=== PATIENT | female | born 1960 | race Caucasian/White ===

== ENCOUNTER 2017-07-24 14:26 | Inpatient (IN) | payer MEDICAID ==
[2017-07-24 14:26] VITALS: BMI 36.9
[2017-07-24] MEDS ORDERED: Sodium Chloride 0.9% 1,000 ML IV ONE (14:49)
[2017-07-24] MEDS: Albuterol-Ipratrop 3 mg / 0.5 (3 ml) UD IH SCH ×2 (15:30→15:40)
[2017-07-24 15:40] LABS: BASO # 0.1 K/uL (0.0-0.2); BASO % 0.4 % (0.0-2.0); EOS # 0.2 K/uL (0.0-0.7); EOS % 1.2 % (0.0-4.0); HEMATOCRIT 36.9 % (34.0-47.0); LYMPH # 1.1 K/uL (1.0-4.3); LYMPH % 7.7 % (20.0-40.0); MEAN CORPUSCULAR HEMOGLOBIN 23.8 pg (27.0-31.0); MEAN CORPUSCULAR HGB CONC 32.3 g/dL (33.0-37.0); MEAN PLATELET VOLUME 8.2 fL (7.2-11.7); MONO # 1.5 K/uL (0.0-0.8); MONO % 9.9 % (0.0-10.0); PLATELET COUNT 398 K/uL (130-400); RED CELL DISTRIBUTION WIDTH 18.8 % (11.5-14.5); WHITE BLOOD COUNT 14.7 K/uL (4.8-10.8)
[2017-07-24 15:41] LABS: MEAN CELL VOLUME 73.6 fL (81.0-99.0)
[2017-07-24] MEDS ORDERED: Albuterol-Ipratrop 3 mg / 0.5 (3 ml) UD ONE (15:50)
--- NOTE | 2017-07-24 15:55 | C.PDOC ---
History Of Present Illness <Samara Berry Charley - Last Filed: 07/24/17 18:38> <Terri Burks - Last Filed: 07/24/17 20:19> 56 y/o female, with PMHx of asthma, presents to ED for evaluation of cough, phlegm, and shortness of breath for the last 2 days. As per son, pt had fever, and diarrhea yesterday. Pt reports using inhaler at home without improvement. Otherwise, denies chest pain, abdominal pain, nausea, vomiting, or lower extremity pain/swelling. (Samara Berry) History Per: Patient History/Exam Limitations: no limitations Onset/Duration Of Symptoms: Days (2) Current Symptoms Are (Timing): Still Present Exacerbating Factor(s): Exertion, Coughing Current Respiratory Medications: See Home Med List Severity: None Pain Scale Rating Of: 0 Associated Symptoms: Fever. denies: Sweating, Chest Pain, Bloody Cough, Heart Racing, Leg/Calf Pain, Ankle/Leg Swelling, Dizziness, Light-headedness, Anxiety , Tingling In Hands Or Face, Musle Spasms In Hands Or Feet Recent travel outside of the [place]: No Additional History Per: Patient <Samara Berry - Last Filed: 07/24/17 18:38> <Terri Burks - Last Filed: 07/24/17 20:19> Time Seen by Provider: 07/24/17 14:32 Chief Complaint (Nursing): Shortness Of Breath Past Medical History Reviewed: Historical Data, Nursing Documentation, Vital Signs - Medical History PMH: Asthma, Diabetes, HTN Surgical History: Cholecystectomy Family History: States: Unknown Family Hx - Social History Hx Tobacco Use: No Hx Alcohol Use: No Hx Substance Use: No - Immunization History Hx Tetanus Toxoid Vaccination: No Hx Influenza Vaccination: No Hx Pneumococcal Vaccination: No <KristiSamara A - Last Filed: 07/24/17 18:38> Vital Signs: Last Vital Signs Temp 98.6 F 07/24/17 14:33 Pulse 95 H 07/24/17 14:33 Resp 20 07/24/17 15:15 BP 129/86 07/24/17 14:33 Pulse Ox 96 07/24/17 18:41 - [facility] Procedures ESOPHAGOGASTRODUODENOSCOPY [EGD] W/CLOSED BIOPSY (03/13/13) Review Of Systems Except As Marked, All Systems Reviewed And Found Negative. Constitutional: Positive for: Fever Cardiovascular: Negative for: Chest Pain, Palpitations, Light Headedness Respiratory: Positive for: Cough, Shortness of Breath, Sputum. Negative for: Hemoptysis Gastrointestinal: Positive for: Diarrhea. Negative for: Nausea, Vomiting, Abdominal Pain, Melena, Hematochezia Genitourinary: Negative for: Dysuria, Frequency, Hematuria Skin: Negative for: Rash, Bruising Neurological: Negative for: Headache, Dizziness <Samara Berry Charley - Last Filed: 07/24/17 18:38> Physical Exam - Physical Exam Appears: Non-toxic, No Acute Distress Skin: Normal Color, Warm, Dry Head: Atraumatic, Normacephalic Eye(s): bilateral: EOMI, Other (blind) Nose: Normal Oral Mucosa: Moist Neck: Normal ROM, Supple Chest: Symmetrical Cardiovascular: Rhythm Regular, No Murmur Respiratory: Normal Breath Sounds, No Rales, No Rhonchi, No Wheezing Gastrointestinal/Abdominal: Soft, No Tenderness Back: No CVA Tenderness Extremity: Normal ROM, No Pedal Edema Neurological/Psych: Oriented x3, Normal Speech, Normal Cognition <Samara Berry Charley - Last Filed: 07/24/17 18:38> ED Course And Treatment - Laboratory Results Result Diagrams: 07/24/17 15:31 07/24/17 15:31 Lab Interpretation: No Acute Changes ECG: Interpreted By Me ECG Rhythm: Sinus Rhythm ECG Interpretation: No Acute Changes Rate From EC O2 Sat by Pulse Oximetry: 96 Pulse Ox Interpretation: Normal - Other Rad No standard instances X-Ray: Viewed By Me, Read By Radiologist Interpretation: FINDINGS: LUNGS: The lungs are well inflated. The right lung is clear. PLEURA: There is a small left pleural effusion. No right pleural effusion. No pneumothorax. CARDIOVASCULAR: Normal. OSSEOUS STRUCTURES: Within normal limits for the patient's age. There is lobular calcification lateral to the left humeral head which may represent calcific tendinitis. VISUALIZED UPPER ABDOMEN: Normal. OTHER FINDINGS: None. IMPRESSION: Small left pleural effusion. Underlying atelectasis/ pneumonia cannot be excluded. Follow-up is advised. Progress Note: Blood work, UA, CXR, EKG, angio chest CT ordered and reviewed. Patient was given IV fluids, and nebulizer treatment. Treated with Rocephin and zithromax IV Reassessment Condition: Improved <Samara Berry - Last Filed: 07/24/17 18:38> - Laboratory Results Result Diagrams: 07/24/17 15:31 07/24/17 15:31 Lab Interpretation: Abnormal (WBC 14.7 with left shift, d-dimer) - CT Scan/US CT angio chest Other Rad Studies (CT/US): Read By Radiologist, Radiology Report Reviewed CT/US Interpretation: Accession No. : [id number]. Patient Name / ID : KEV FOWLER / [id number]. Exam Date : 07/24/2017 18:44:11 ( Approved ) . Study Comment : Sex / Age : F / 56Y. Creator : Teo Huston MD. Dictator : Teo Huston MD. Continuous Drier Operator : Air Brakes Inspector : Teo Huston MD. Approver2 : Report Date : 07/24/2017 19:02:21. My Comment : . PROCEDURE: CT Chest with contrast (Pulmonary Angiogram). HISTORY: dyspnea. COMPARISON: None available. TECHNIQUE: Axial computed tomography images were obtained of the chest in the pulmonary arterial phase of enhancement. Coronal and sagittal reformatted images were created and reviewed. Intravenous contrast dose: 100 cc Visipaque 320. Mean Hounsfield unit values in the main pulmonary artery: 265.48. Radiation dose: Total exam DLP = 570.78 mGy-cm. This CT exam was performed using one or more of the following dose reduction techniques: Automated exposure control, adjustment of the mA and/or kV according to patient size, and/or use of iterative reconstruction technique. FINDINGS: PULMONARY ARTERIES: Unremarkable. No pulmonary embolism. AORTA: Mildly aneurysmal ascending aorta orthogonal measurements 3.9 x 4.2 cm. Unremarkable aortic arch and descending thoracic and upper abdominal aorta. LUNGS: Compressive atelectasis primarily affecting the left lower lobe. No suspicious pulmonary nodules, masses, infiltrates identified. PLEURAL SPACES: Unremarkable. No effusionPartially loculated, large left pleural effusion. All or pneuomothorax. HEART: Unremarkable. No cardiomegaly. No significant pericardial effusion. LYMPH NODES: No lymphadenopathy. BONES, CHEST WALL: Unremarkable. No fracture or destructive lesion. OTHER FINDINGS: Unremarkable. IMPRESSION: Unremarkable CT pulmonary angiogram. No pulmonary embolus. Large left pleural effusion partially loculated. Compressive atelectasis primarily affecting the left lower lobe. Reevaluation Time: 20:16 - Physician Consult Information Time Consulting Physician Contacted: 20:16 Physician Contacted: Gene Olivares Outcome Of Conversation: Patient to be admitted for evaluation and treatment of left pleural effusion. <Terri Burks - Last Filed: 07/24/17 20:19> Disposition - Disposition Disposition Time: 19:00 - POA Present On Arrival: None <Samara Berry - Last Filed: 07/24/17 18:38> - Disposition Disposition Time: 20:19 - POA Present On Arrival: None <Terri Burks - Last Filed: 07/24/17 20:19> - Disposition Disposition: HOSPITALIZED Condition: STABLE Forms: [facility] (Lao) - Clinical Impression Clinical Impression: Dyspnea, Pneumonia, Pleural effusion, left - PA / ELECTRONIC DESIGN ENGINEER / Resident Statement MD/DO has reviewed & agrees with the documentation as recorded. - Scribe Statement The provider has reviewed the documentation as recorded by the Scribe <Samara Berry - Last Filed: 07/24/17 18:38> <Terri Burks - Last Filed: 07/24/17 20:19> - Scribe Statement Jarad Birch All medical record entries made by the Scribe were at my direction and personally dictated by me. I have reviewed the chart and agree that the record accurately reflects my personal performance of the history, physical exam, medical decision making, and the department course for this patient. I have also personally directed, reviewed, and agree with the discharge instructions and disposition. (Samara Berry) Physician Patient Turnover Patient Signed Over To: Terri Burks Handoff Comments: CTA <Samara Berry - Last Filed: 07/24/17 18:38>
[2017-07-24 16:07] LABS: CHLORIDE 94 mmol/L (98-107); NEUTROPHIL 82 % (50-75); POTASSIUM 3.5 mmol/L (3.6-5.2); SODIUM 132 mmol/L (132-148); TOTAL CELLS COUNTED 100
[2017-07-24 16:08] LABS: GIANT PLATELETS PRESENT; LARGE PLATELETS PRESENT
[2017-07-24 16:09] LABS: AST/SGOT 18 U/L (14-36); BILIRUBIN,TOTAL 0.5 mg/dL (0.2-1.3); CARBON DIOXIDE 21 mmol/L (22-30); GFR AFRICAN-AMERICAN > 60
[2017-07-24 16:10] LABS: ALB/GLOB RATIO 1.1 (1.0-2.1); ALKALINE PHOSPHATASE 86 U/L (38-126); ALT/SGPT 25 U/L (9-52); BLOOD UREA NITROGEN 10 mg/dL (7-17); CALCIUM 9.1 mg/dl (8.6-10.4); GLUCOSE,RANDOM 204 mg/dL (65-105); TOTAL PROTEIN 7.8 g/dL (6.3-8.3)
--- NOTE | 2017-07-24 16:40 | RAD ---
HISTORY: Shortness of breath COMPARISON: 08/19/2011. TECHNIQUE: Chest PA and lateral FINDINGS: LUNGS: The lungs are well inflated. The right lung is clear. PLEURA: There is a small left pleural effusion. No right pleural effusion. No pneumothorax. CARDIOVASCULAR: Normal. OSSEOUS STRUCTURES: Within normal limits for the patient's age. There is lobular calcification lateral to the left humeral head which may represent calcific tendinitis. VISUALIZED UPPER ABDOMEN: Normal. OTHER FINDINGS: None. IMPRESSION: Small left pleural effusion. Underlying atelectasis/ pneumonia cannot be excluded. Follow-up is advised.
[2017-07-24 17:11] LABS: RBC URINE 1 /hpf (0-3); URINE BACTERIA RARE (<OCC); URINE BILIRUBIN NEGATIVE (NEGATIVE); URINE BLOOD NEGATIVE (NEGATIVE); URINE COLOR Yellow (YELLOW); URINE GLUCOSE (UA) 1+ mg/dL (Normal); URINE KETONE NEGATIVE (NEGATIVE); URINE LEUKOCYTE ESTERASE NEG Leu/uL (Negative); URINE PROTEIN NEGATIVE (NEGATIVE); URINE UROBILINOGEN NORMAL mg/dL (0.2-1.0); WBC URINE 2 /hpf (0-5)
[2017-07-24] MEDS ORDERED: cefTRIAXone IV 1 gm in Dextros 50 ML IV ONE (17:54)
[2017-07-24] MEDS ORDERED: Iodixanol 320 MG/ML 100 ML BOTTLE IV ONE (17:58)
[2017-07-24] MEDS ORDERED: Azithromycin 500mg/250ML NS 500 MG/250 ML BAG IV ONE (18:00)
[2017-07-24] MEDS ORDERED: Azithromycin 500mg/250ML NS 500 MG/250 ML BAG IVPB ONE ×2 (18:19→18:58)
[2017-07-24] MEDS ORDERED: cefTRIAXone IV 1 gm in Dextros 50 ML IVPB ONE (18:53)
--- NOTE | 2017-07-24 19:03 | CT ---
PROCEDURE: CT Chest with contrast (Pulmonary Angiogram) HISTORY: dyspnea COMPARISON: None available. TECHNIQUE: Axial computed tomography images were obtained of the chest in the pulmonary arterial phase of enhancement. Coronal and sagittal reformatted images were created and reviewed. Intravenous contrast dose: 100 cc Visipaque 320 Mean Hounsfield unit values in the main pulmonary artery: 265.48 Radiation dose: Total exam DLP = 570.78 mGy-cm. This CT exam was performed using one or more of the following dose reduction techniques: Automated exposure control, adjustment of the mA and/or kV according to patient size, and/or use of iterative reconstruction technique. FINDINGS: PULMONARY ARTERIES: Unremarkable. No pulmonary embolism. AORTA: Mildly aneurysmal ascending aorta orthogonal measurements 3.9 x 4.2 cm. Unremarkable aortic arch and descending thoracic and upper abdominal aorta. LUNGS: Compressive atelectasis primarily affecting the left lower lobe. No suspicious pulmonary nodules, masses, infiltrates identified. PLEURAL SPACES: Unremarkable. No effusionPartially loculated, large left pleural effusion. All or pneuomothorax. HEART: Unremarkable. No cardiomegaly. No significant pericardial effusion. LYMPH NODES: No lymphadenopathy. BONES, CHEST WALL: Unremarkable. No fracture or destructive lesion OTHER FINDINGS: Unremarkable. IMPRESSION: Unremarkable CT pulmonary angiogram. No pulmonary embolus. Large left pleural effusion partially loculated. Compressive atelectasis primarily affecting the left lower lobe.
[2017-07-25] MEDS ORDERED: Albuterol-Ipratrop 3 mg / 0.5 (3 ml) UD INH PRN (00:07)
[2017-07-25 01:47] LABS: BASO # 0.1 K/uL (0.0-0.2); BASO % 0.9 % (0.0-2.0); EOS # 0.2 K/uL (0.0-0.7); EOS % 1.7 % (0.0-4.0); HEMATOCRIT 34.3 % (34.0-47.0); LYMPH # 1.3 K/uL (1.0-4.3); LYMPH % 11.8 % (20.0-40.0); MEAN CELL VOLUME 73.4 fL (81.0-99.0); MEAN CORPUSCULAR HEMOGLOBIN 23.1 pg (27.0-31.0); MEAN CORPUSCULAR HGB CONC 31.4 g/dL (33.0-37.0); MEAN PLATELET VOLUME 8.3 fL (7.2-11.7); MONO # 1.2 K/uL (0.0-0.8); MONO % 10.6 % (0.0-10.0); RED CELL DISTRIBUTION WIDTH 19.2 % (11.5-14.5); WHITE BLOOD COUNT 11.4 K/uL (4.8-10.8)
[2017-07-25 01:59] LABS: CHLORIDE 99 mmol/L (98-107); POTASSIUM 3.2 mmol/L (3.6-5.2); SODIUM 136 mmol/L (132-148)
[2017-07-25 02:02] LABS: ALKALINE PHOSPHATASE 76 U/L (38-126); ALT/SGPT 17 U/L (9-52); AST/SGOT 15 U/L (14-36); BILIRUBIN,TOTAL 0.5 mg/dL (0.2-1.3); BLOOD UREA NITROGEN 7 mg/dL (7-17); CALCIUM 9.1 mg/dl (8.6-10.4); CARBON DIOXIDE 23 mmol/L (22-30); GFR AFRICAN-AMERICAN > 60; GLUCOSE,RANDOM 184 mg/dL (65-105); TOTAL PROTEIN 7.1 g/dL (6.3-8.3)
--- NOTE | 2017-07-25 03:12 | CP.PCM.HP ---
<Ari Olson - Last Filed: 07/25/17 04:20> History of Present Illness - History of Present Illness History of Present Illness: 56 yo F with a PMHx of asthma, DM, HTN, CVA, and total bilateral vision loss, presents to the ED for worsening shortness of breath that began 4 days ago. Alleviating factors include laying flat and exacerbating factors include sitting up or standing. Associated symptoms include non-productive cough, wheezing, fatigue, subjective fever, headache and loss of appetite. The cough has disrupted her sleep. She also endorses mid-sternal/right sided chest pain rated 7/10, epigastric pain rated 7/10, and 5 episodes of non-bloody diarrhea which all began yesterday. She denies sore throat, recent travel, sick contacts , dysuria, chills, weight changes. She says her shortness of breath feels like asthma. She normally uses her inhaler 1-2x a day however the inhaler hasn't resolved her dsypnea this time. 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", HTN, left sided pyelonephritis 2015, hiatal hernia PSHx: EGD w/ biopsy 2012, cholecystectomy Allergies: NKA Home Medications: Carvedilol 12.5mg po bid, Fluticasone propionate 50mcg inh daily, Advair Diskus 1 puff IH q12, Ferralet 1 tab po daily, loratadine 10mg po qd, metformin 1000mg po bid, omeprazole 20mg po daily, onglyza 5mg po daily, valsartan 160-25mg qd, montelukast 10mg qd SocialHx: hx of 1/2 ppd for 20 years; denies alcohol and drugs; lives alone in apartment; unemployed; FamHx: Mom: Asthma, DM; Uncle: total b/l vision loss; 4 kids delivered, all premature, 2 shortly after childbirth, 1 child at 14 yrs and also with b/l vision loss, cause of unknown, "water in his head", 1 son alive with no medical problems Present on Admission - Present on Admission Any Indicators Present on Admission: No History of DVT/PE: No History of Uncontrolled Diabetes: No Urinary Catheter: No Decubitus Ulcer Present: No Review of Systems - Constitutional Constitutional: Fever, Headache. absent: Chills, Night Sweats, Weight Loss - EENT Eyes: Loss of Vision Ears: absent: Ear Pain Nose/Mouth/Throat: absent: Nasal Discharge - Cardiovascular Cardiovascular: Chest Pain. absent: Diaphoresis, Pain Radiating to Arm/Neck/Jaw , Leg Edema, Palpitations, Rapid Heart Rate - Respiratory Respiratory: Cough, Wheezing, Pain on Inspiration. absent: Hemoptysis, Dyspnea on Exertion - Gastrointestinal Gastrointestinal: Abdominal Pain, Diarrhea. absent: Vomiting - Genitourinary Genitourinary: absent: Dysuria, Flank Pain, Urinary Frequency - Musculoskeletal Musculoskeletal: absent: Back Pain, Muscle Weakness - Integumentary Integumentary: absent: Lesions - Neurological Neurological: absent: Confusion, Convulsions, Dizziness Past Patient History - Past Social History Smoking Status: Never Smoked - CARDIAC Hx Hypertension: Yes - PULMONARY Hx Asthma: Yes - NEUROLOGICAL Hx Neurological Disorder: Yes HX Cerebrovascular Accident: Yes - ENDOCRINE/METABOLIC Hx Diabetes Mellitus Type 2: Yes - PSYCHIATRIC Hx Substance Use: No - SURGICAL HISTORY Hx Cholecystectomy: Yes - ANESTHESIA Hx Anesthesia: Yes Hx Anesthesia Reactions: No Meds Allergies/Adverse Reactions: Allergies Allergy/AdvReac Type Severity Reaction Status Date / Time No Known Allergies Allergy Verified 07/24/17 14:39 Physical Exam - Constitutional Appears: Well, Non-toxic, No Acute Distress - Head Exam Head Exam: ATRAUMATIC, NORMAL INSPECTION - Eye Exam Eye Exam: absent: EOMI Pupil Exam: absent: PERRL Additional comments: total bilateral vision loss - ENT Exam ENT Exam: Mucous Membranes Moist, Normal Exam - Neck Exam Neck exam: Negative for: Lymphadenopathy, Tenderness - Respiratory Exam Respiratory Exam: Rales, Wheezes. absent: Clear to Auscultation Bilateral Additional comments: left sided rales; wheezing diffusely b/l - Cardiovascular Exam Cardiovascular Exam: REGULAR RHYTHM, +S1, +S2. absent: Irregular Rhythm, Systolic Murmur - GI/Abdominal Exam GI & Abdominal Exam: Normal Bowel Sounds, Soft. absent: Tenderness - Rectal Exam Rectal Exam: Deferred - Extremities Exam Extremities exam: Positive for: normal capillary refill, normal inspection. Negative for: calf tenderness, pedal edema, tenderness - Back Exam Back exam: NORMAL INSPECTION. absent: CVA tenderness (L), CVA tenderness (R), tenderness - Neurological Exam Neurological exam: Alert, Oriented x3 - Psychiatric Exam Psychiatric exam: Normal Affect, Normal Mood - Skin Skin Exam: Dry, Intact, Normal Color, Warm Results - Vital Signs Recent Vital Signs: Last Vital Signs Temp 98.4 F 07/25/17 00:15 Pulse 83 07/25/17 00:15 Resp 20 07/25/17 00:15 BP 135/86 07/25/17 00:15 Pulse Ox 96 07/25/17 00:15 - Labs Result Diagrams: 07/25/17 01:38 07/25/17 01:38 Labs: Laboratory Results - last 24 hr 07/24/17 07/24/17 07/24/17 15:31 15:31 15:31 WBC 14.7 H RBC 5.02 Hgb 12.0 Hct 36.9 MCV 73.6 L D MCH 23.8 L MCHC 32.3 L RDW 18.8 H Plt Count 398 MPV 8.2 Neut % (Auto) 80.8 H Lymph % (Auto) 7.7 L [place] % (Auto) 9.9 Eos % (Auto) 1.2 Baso % (Auto) 0.4 Neut # 11.9 H Lymph # 1.1 [place] # 1.5 H Eos # 0.2 Baso # 0.1 Neutrophils % (Manual) 82 H Band Neutrophils % 1 Lymphocytes % (Manual) 7 L Monocytes % (Manual) 10 Platelet Estimate Normal Large Platelets Present Giant Platelets Present Poikilocytosis (manual Slight Anisocytosis (manual) Slight Ovalocytes Slight D-Dimer, Quantitative 905 H Sodium 132 Potassium 3.5 L Chloride 94 L Carbon Dioxide 21 L Anion Gap 21 H BUN 10 Creatinine 0.7 Est GFR ( Amer) > 60 Est GFR (Non-Af Amer) > 60 Random Glucose 204 H Hemoglobin A1c Lactic Acid Calcium 9.1 Total Bilirubin 0.5 AST 18 ALT 25 Alkaline Phosphatase 86 Troponin I < 0.0120 NT-Pro-B Natriuret Pep 260 Total Protein 7.8 Albumin 4.0 Globulin 3.8 Albumin/Globulin Ratio 1.1 Lipase 51 Urine Color Urine Clarity Urine pH Ur Specific [place] Urine Protein Urine Glucose (UA) Urine Ketones Urine Blood Urine Nitrate Urine Bilirubin Urine Urobilinogen Ur Leukocyte Esterase Urine WBC (Auto) Urine RBC (Auto) Ur Squamous Epith Cells Urine Bacteria 07/24/17 07/25/17 07/25/17 16:21 01:38 01:38 WBC 11.4 H RBC 4.68 Hgb 10.8 L Hct 34.3 MCV 73.4 L MCH 23.1 L MCHC 31.4 L RDW 19.2 H Plt Count 368 MPV 8.3 Neut % (Auto) 75.0 Lymph % (Auto) 11.8 L [place] % (Auto) 10.6 H Eos % (Auto) 1.7 Baso % (Auto) 0.9 Neut # 8.6 H Lymph # 1.3 [place] # 1.2 H Eos # 0.2 Baso # 0.1 Neutrophils % (Manual) Band Neutrophils % Lymphocytes % (Manual) Monocytes % (Manual) Platelet Estimate Large Platelets Giant Platelets Poikilocytosis (manual Anisocytosis (manual) Ovalocytes D-Dimer, Quantitative Sodium 136 Potassium 3.2 L Chloride 99 Carbon Dioxide 23 Anion Gap 17 BUN 7 Creatinine 0.6 L Est GFR ( Amer) > 60 Est GFR (Non-Af Amer) > 60 Random Glucose 184 H Hemoglobin A1c Lactic Acid Calcium 9.1 Total Bilirubin 0.5 AST 15 ALT 17 Alkaline Phosphatase 76 Troponin I NT-Pro-B Natriuret Pep Total Protein 7.1 Albumin 3.6 Globulin 3.6 Albumin/Globulin Ratio 1.0 Lipase Urine Color Yellow Urine Clarity Clear Urine pH 6.0 Ur Specific [place] 1.009 Urine Protein Negative Urine Glucose (UA) 1+ Urine Ketones Negative Urine Blood Negative Urine Nitrate Negative Urine Bilirubin Negative Urine Urobilinogen Normal Ur Leukocyte Esterase Neg Urine WBC (Auto) 2 Urine RBC (Auto) 1 Ur Squamous Epith Cells 3 Urine Bacteria Rare 07/25/17 07/25/17 01:38 01:43 WBC RBC Hgb Hct MCV MCH MCHC RDW Plt Count MPV Neut % (Auto) Lymph % (Auto) [place] % (Auto) Eos % (Auto) Baso % (Auto) Neut # Lymph # [place] # Eos # Baso # Neutrophils % (Manual) Band Neutrophils % Lymphocytes % (Manual) Monocytes % (Manual) Platelet Estimate Large Platelets Giant Platelets Poikilocytosis (manual Anisocytosis (manual) Ovalocytes D-Dimer, Quantitative Sodium Potassium Chloride Carbon Dioxide Anion Gap BUN Creatinine Est GFR ( Amer) Est GFR (Non-Af Amer) Random Glucose Hemoglobin A1c 6.9 H Lactic Acid 1.9 Calcium Total Bilirubin AST ALT Alkaline Phosphatase Troponin I NT-Pro-B Natriuret Pep Total Protein Albumin Globulin Albumin/Globulin Ratio Lipase Urine Color Urine Clarity Urine pH Ur Specific [place] Urine Protein Urine Glucose (UA) Urine Ketones Urine Blood Urine Nitrate Urine Bilirubin Urine Urobilinogen Ur Leukocyte Esterase Urine WBC (Auto) Urine RBC (Auto) Ur Squamous Epith Cells Urine Bacteria Assessment & Plan (1) Pleural effusion, left Assessment and Plan: Possibly 2/2 to pneumonia w/ atypical presentation; elevated WBC; sob, dry cough , extra-pulmonary symptoms: mid-sternal/rt sided chest pain and abd pain worse w / inspiration, subjective fever, headache, nausea, diarrhea CTA Chest: large left pleural effusion partially loculated, no evidence for PE CXR: small left pleural effusion Troponin negative ProBNP 260 F/U blood culture, procalcitonin, lactate, mycoplasma Igg, s.pneumoniae Ag, sputum culture, legionella Ag urine, cbc w/ diff ceftriaxone 1gm ivpb daily azithromycin 500mg ivpb daily Status: Acute (2) Asthma Assessment and Plan: Moderate persistent asthma w/ inhaler use 1-2x a day duoneb q6 prn con't home med fluticasone propionate 1 spr ns daily con't home med fluticasone/salmeterol 1 putt IH q12 con't home med montelukast 10mg po hs con't home med loratadine 10mg po daily Status: Acute (3) Diabetes mellitus Assessment and Plan: Hx of DM2 HgA1C 6.9 Regular insulin sliding scale - low dose protocol holding home med metformin 1000mg po bid diabetic diet Status: Acute (4) HTN (hypertension) Assessment and Plan: Hx of HTN; BP well controlled con't home med carvedilol 12.5mg po bid con't home med valsartan 160-25mg qd, however our pharmacy does not carry thus will replace with losartan 100mg and hydrochlorothiazide 25mg Status: Acute (5) Prophylactic measure Assessment and Plan: GI: con't home med pantoprazole 20mg po daily DVT: heparin 5000u sc q12 Diet: diabetic diet Status: Acute <Gene Olivares - Last Filed: 07/25/17 06:39> Results - Vital Signs Recent Vital Signs: Last Vital Signs Temp 98.4 F 07/25/17 00:15 Pulse 69 07/25/17 01:00 Resp 20 07/25/17 00:49 BP 135/86 07/25/17 00:15 Pulse Ox 96 07/25/17 00:15 - Labs Result Diagrams: 07/25/17 01:38 07/25/17 01:38 Labs: Laboratory Results - last 24 hr 07/24/17 07/24/17 07/24/17 15:31 15:31 15:31 WBC 14.7 H RBC 5.02 Hgb 12.0 Hct 36.9 MCV 73.6 L D MCH 23.8 L MCHC 32.3 L RDW 18.8 H Plt Count 398 MPV 8.2 Neut % (Auto) 80.8 H Lymph % (Auto) 7.7 L [place] % (Auto) 9.9 Eos % (Auto) 1.2 Baso % (Auto) 0.4 Neut # 11.9 H Lymph # 1.1 [place] # 1.5 H Eos # 0.2 Baso # 0.1 Neutrophils % (Manual) 82 H Band Neutrophils % 1 Lymphocytes % (Manual) 7 L Monocytes % (Manual) 10 Platelet Estimate Normal Large Platelets Present Giant Platelets Present Poikilocytosis (manual Slight Anisocytosis (manual) Slight Ovalocytes Slight D-Dimer, Quantitative 905 H Sodium 132 Potassium 3.5 L Chloride 94 L Carbon Dioxide 21 L Anion Gap 21 H BUN 10 Creatinine 0.7 Est GFR ( Amer) > 60 Est GFR (Non-Af Amer) > 60 Random Glucose 204 H Hemoglobin A1c Lactic Acid Calcium 9.1 Total Bilirubin 0.5 AST 18 ALT 25 Alkaline Phosphatase 86 Troponin I < 0.0120 NT-Pro-B Natriuret Pep 260 Total Protein 7.8 Albumin 4.0 Globulin 3.8 Albumin/Globulin Ratio 1.1 Lipase 51 Urine Color Urine Clarity Urine pH Ur Specific [place] Urine Protein Urine Glucose (UA) Urine Ketones Urine Blood Urine Nitrate Urine Bilirubin Urine Urobilinogen Ur Leukocyte Esterase Urine WBC (Auto) Urine RBC (Auto) Ur Squamous Epith Cells Urine Bacteria 07/24/17 07/25/17 07/25/17 16:21 01:38 01:38 WBC 11.4 H RBC 4.68 Hgb 10.8 L Hct 34.3 MCV 73.4 L MCH 23.1 L MCHC 31.4 L RDW 19.2 H Plt Count 368 MPV 8.3 Neut % (Auto) 75.0 Lymph % (Auto) 11.8 L [place] % (Auto) 10.6 H Eos % (Auto) 1.7 Baso % (Auto) 0.9 Neut # 8.6 H Lymph # 1.3 [place] # 1.2 H Eos # 0.2 Baso # 0.1 Neutrophils % (Manual) Band Neutrophils % Lymphocytes % (Manual) Monocytes % (Manual) Platelet Estimate Large Platelets Giant Platelets Poikilocytosis (manual Anisocytosis (manual) Ovalocytes D-Dimer, Quantitative Sodium 136 Potassium 3.2 L Chloride 99 Carbon Dioxide 23 Anion Gap 17 BUN 7 Creatinine 0.6 L Est GFR ( Amer) > 60 Est GFR (Non-Af Amer) > 60 Random Glucose 184 H Hemoglobin A1c Lactic Acid Calcium 9.1 Total Bilirubin 0.5 AST 15 ALT 17 Alkaline Phosphatase 76 Troponin I NT-Pro-B Natriuret Pep Total Protein 7.1 Albumin 3.6 Globulin 3.6 Albumin/Globulin Ratio 1.0 Lipase Urine Color Yellow Urine Clarity Clear Urine pH 6.0 Ur Specific [place] 1.009 Urine Protein Negative Urine Glucose (UA) 1+ Urine Ketones Negative Urine Blood Negative Urine Nitrate Negative Urine Bilirubin Negative Urine Urobilinogen Normal Ur Leukocyte Esterase Neg Urine WBC (Auto) 2 Urine RBC (Auto) 1 Ur Squamous Epith Cells 3 Urine Bacteria Rare 07/25/17 07/25/17 01:38 01:43 WBC RBC Hgb Hct MCV MCH MCHC RDW Plt Count MPV Neut % (Auto) Lymph % (Auto) [place] % (Auto) Eos % (Auto) Baso % (Auto) Neut # Lymph # [place] # Eos # Baso # Neutrophils % (Manual) Band Neutrophils % Lymphocytes % (Manual) Monocytes % (Manual) Platelet Estimate Large Platelets Giant Platelets Poikilocytosis (manual Anisocytosis (manual) Ovalocytes D-Dimer, Quantitative Sodium Potassium Chloride Carbon Dioxide Anion Gap BUN Creatinine Est GFR ( Amer) Est GFR (Non-Af Amer) Random Glucose Hemoglobin A1c 6.9 H Lactic Acid 1.9 Calcium Total Bilirubin AST ALT Alkaline Phosphatase Troponin I NT-Pro-B Natriuret Pep Total Protein Albumin Globulin Albumin/Globulin Ratio Lipase Urine Color Urine Clarity Urine pH Ur Specific [place] Urine Protein Urine Glucose (UA) Urine Ketones Urine Blood Urine Nitrate Urine Bilirubin Urine Urobilinogen Ur Leukocyte Esterase Urine WBC (Auto) Urine RBC (Auto) Ur Squamous Epith Cells Urine Bacteria Assessment & Plan - Date & Time Date: 07/25/17 (I have seen and examined the patient. I agree with the findings and plan of care as documented by Dr. Olson. Patient with left pleural effusion. CT chest done. Rocephin and Azithromycin for now. Check sputum and blood cultures. Also with history of diabetes and asthma. Continue home meds. Accuchecks and NISS. Monitor for acute changes.) Time: 06:37 Attending/Attestation - Attestation I have personally seen and examined this patient.: Yes I have fully participated in the care of the patient.: Yes I have reviewed all pertinent clinical information: Yes
[2017-07-25] MEDS: (Novolin R) Insulin Human Regular 100 units/ml vial SC SCH ×4 (08:25→22:03)
[2017-07-25] MEDS ORDERED: Pneumococcal 23-Valent Vaccine IM ONE (10:00)
[2017-07-25] MEDS ORDERED: Azithromycin 500 MG in Sodium Chloride 0.9% 250 ML IVPB SCH (10:00)
[2017-07-25] MEDS ORDERED: Fluticasone-Salmeterol 250-50mcg Diskus IH SCH (10:00)
[2017-07-25] MEDS ORDERED: Potassium Chloride 20 mEq ER Tab PO ONE (10:00)
[2017-07-25] MEDS: Saccharomyces Boulardi 250 mg Cap PO SCH ×2 (10:46→17:54)
[2017-07-25] MEDS: Fluticasone Nasal 50 mcg/Spray NS SCH (10:47)
[2017-07-25] MEDS: Pantoprazole 20 mg EC Tab PO SCH (10:48)
--- NOTE | 2017-07-25 11:28 | PCM.SURG1 ---
Surgeon's Initial Post Op Note - Surgeon's Notes Surgeon: Dg James MD Vp Corporate Partnerships: NONE Type of Anesthesia: Local Pre-Operative Diagnosis: Left pleural effusion Operative Findings: US showed a small left effusion Post-Operative Diagnosis: Left pleural effusion Operation Performed: US guided left thoracentesis. Specimen/Specimens Removed: 300 cc of clear yellow fluid Estimated Blood Loss: EBL {In ML}: 0 Blood Products Given: N/A Drains Used: No Drains Post-Op Condition: Fair Date of Surgery/Procedure: 07/25/17 Time of Surgery/Procedure: 11:25
[2017-07-25 12:06] LABS: IRON 19 ug/dL (37-170)
[2017-07-25 12:07] LABS: MAGNESIUM 1.4 mg/dL (1.6-2.3); PHOSPHOROUS 2.6 mg/dL (2.5-4.5)
--- NOTE | 2017-07-25 12:59 | CP.PCM.PN ---
Addendum entered and electronically signed by Caitlin Amor DO 07/25/17 15:55: I spoke with Kal, Nursing diving supervisor of lab histology, who instructed to get a green slip filled out for cytology. The orders were resent for pleural fluid studies (LDH, Total protein, pH, etc) Nursing diving supervisor stated that the labs were cancelled, and was unable to submit them for studies. I reordered the labs "stat." will follow. Original Note: <Caitlin Amor - Last Filed: 07/25/17 15:41> Subjective - Date & Time of Evaluation Date of Evaluation: 07/25/17 Time of Evaluation: 12:59 - Subjective Subjective: Internal Medicine Progress note for Dr. Birch Patient seen and examined at bedside. Patient admits to shortness of breath yesterday, but denies any difficulty breathing today. Patient states she had chest pain, which has resolved. Patient denies numbness, or tingling. Patient states she has an appetite now. Patient denies difficulty with bowel movements, urination. Patient admits to cough and fatigue. Explained at bedside that patient has fluid around lungs that need to be taken out by interventional radiologist today. Patient went for procedure and 300cc fluid was removed. Patient stated she had non-productive Objective - Vital Signs/Intake and Output Vital Signs (last 24 hours): Temp Pulse Resp BP Pulse Ox 97.8 F 70 20 125/76 98 07/25/17 08:00 07/25/17 08:00 07/25/17 08:00 07/25/17 10:46 07/25/17 08:00 - Medications Medications: Current Medications Albuterol/Ipratropium (Duoneb 3 Mg/0.5 Mg (3 Ml) Ud) 3 ml INH RQ6 PRN PRN Reason: Shortness of Breath Last Admin: 07/25/17 08:02 Dose: 3 ml Carvedilol (Coreg) 12.5 mg PO BID [facility] Last Admin: 07/25/17 10:46 Dose: 12.5 mg Famotidine (Pepcid) 20 mg PO DAILY [facility] Last Admin: 07/25/17 10:46 Dose: 20 mg Fluticasone Propionate (Flonase) 1 spr NS DAILY [facility] Last Admin: 07/25/17 10:47 Dose: Not Given Heparin Sodium (Porcine) (Heparin) 5,000 units SC Q12H [facility] Last Admin: 07/25/17 10:48 Dose: Not Given Home Med (Iron Carb,Gl/Fa/B12/C/Docusate [Ferralet 90 Tablet]) 1 tab PO DAILY [facility] Hydrochlorothiazide (Hydrodiuril) 25 mg PO DAILY [facility] Last Admin: 07/25/17 10:46 Dose: 25 mg Azithromycin 500 mg/ Sodium (Chloride) 250 mls @ 250 mls/hr IVPB DAILY [facility] Ceftriaxone Sodium 1 gm/ (Sodium Chloride) 100 mls @ 100 mls/hr IVPB DAILY [facility] Potassium Chloride (Potassium Chloride 20 Meq/100 Ml) 20 meq in 100 mls @ 25 mls/hr IVPB ONCE ONE Stop: 07/25/17 13:59 Magnesium Sulfate/Dextrose (Magnesium Sulfate 1 Gm/100 Ml D5w) 1 gm in 100 mls @ 300 mls/hr IVPB Q30M [facility] Stop: 07/25/17 13:49 Insulin Human Regular (Novolin R) 0 unit SC ACHS [facility] PRN Reason: Protocol Last Admin: 07/25/17 08:25 Dose: Not Given Loratadine (Claritin) 10 mg PO DAILY [facility] Last Admin: 07/25/17 10:46 Dose: 10 mg Losartan Potassium (Cozaar) 100 mg PO DAILY [facility] Last Admin: 07/25/17 10:45 Dose: 100 mg Montelukast Sodium (Singulair) 10 mg PO HS [facility] Pantoprazole Sodium (Protonix Ec Tab) 20 mg PO DAILY [facility] Last Admin: 07/25/17 10:48 Dose: Not Given Pneumococcal Polyvalent Vaccine (Pneumovax 23 Vaccine) 0.5 ml IM .ONCE ONE Stop: 07/26/17 11:01 Saccharomyces Boulardii (Florastor) 250 mg PO BID [facility] Last Admin: 07/25/17 10:46 Dose: 250 mg Fluticasone/Salmeterol (Advair Diskus 250/50) 1 puff IH Q12 [facility] Sitagliptin Phosphate (Januvia) 100 mg PO DAILY [facility] Last Admin: 07/25/17 10:46 Dose: 100 mg - Labs Labs: 07/25/17 01:38 07/25/17 01:38 - Constitutional Appears: No Acute Distress - Head Exam Head Exam: NORMAL INSPECTION - Eye Exam Additional comments: patient is blind. - ENT Exam ENT Exam: Mucous Membranes Moist - Neck Exam Neck Exam: Full ROM - Respiratory Exam Respiratory Exam: Decreased Breath Sounds, Rales. absent: Accessory Muscle Use , Chest Wall Tenderness, Respiratory Distress - Cardiovascular Exam Cardiovascular Exam: +S1, +S2. absent: Bradycardia, Tachycardia - GI/Abdominal Exam GI & Abdominal Exam: Soft. absent: Firm, Guarding, Rigid, Tenderness - Extremities Exam Extremities Exam: Full ROM Additional comments: SCDs in place - Neurological Exam Neurological Exam: Alert, Awake, Oriented x3 - Psychiatric Exam Psychiatric exam: Flat Affect, Normal Affect, Normal Mood - Skin Skin Exam: Dry, Intact, Normal Color Assessment and Plan - Assessment and Plan (Free Text) Assessment: ---- (1) Pleural effusion, left Assessment and Plan: Possibly 2/2 to pneumonia w/ atypical presentation; elevated WBC; sob, dry cough , extra-pulmonary symptoms: mid-sternal/rt sided chest pain and abd pain worse w / inspiration, subjective fever, headache, nausea, diarrhea CTA Chest: large left pleural effusion partially loculated, no evidence for PE CXR: small left pleural effusion Troponin negative ProBNP 260 07/25 blood culture, f/u Procalcitonin 0.12 Lactate Mycoplasma IgG S.pneumoniae Ag Sputum culture Legionella Ag urine influenza a/b 07/25 IR consult: Dr. Dg James took out 300cc of yellow fluid Labs ordered to analyze fluid f/u serum LDH, serum total protein f/u pleural LDH, pleural total protein gram stain, pH, glucose, amylase, cholesterol, cytology f/u CBC daily ceftriaxone 1gm IVPB daily azithromycin 500mg IVPB daily (2) Chest Pain Troponin I negative Procalcitonin 0.12 07/25: d-dimer 905 07/25 CT Chest: no PE, Left pleural effusion (3) Asthma Assessment and Plan: Moderate persistent asthma w/ inhaler use 1-2x a day Duoneb Q6H PRN continue with home medications: fluticasone propionate 1 spr ns daily, fluticasone/salmeterol 1 putt IH q12, montelukast 10mg po hs, loratadine 10mg po daily (4) Diabetes mellitus Assessment and Plan: Hx of DM2, HgA1C 6.9 Regular insulin sliding scale - low dose protocol metformin 1000 PO BID to restart ([address]) diabetic diet (5) Hypertension Assessment and Plan: Hx of HTN; BP well controlled con't home med carvedilol 12.5mg po bid con't home med valsartan 160-25mg qd, equivalent losartan 100mg and hydrochlorothiazide 25mg (6) Prophylaxis Assessment and Plan: GI: Pantoprazole 20mg POQD DVT: Heparin 5000u SC Q12H Diet: diabetic diet 6) Hypomagnesemia 1.4, repleted Iron 19, TIBC 370 %saturation 6 <Nando Birch - Last Filed: 07/25/17 19:44> Objective - Vital Signs/Intake and Output Vital Signs (last 24 hours): Temp Pulse Resp BP Pulse Ox 98.1 F 69 20 146/87 92 L 07/25/17 16:00 07/25/17 16:00 07/25/17 16:00 07/25/17 17:54 07/25/17 16:00 Intake and Output: 07/25/17 07/26/17 18:59 06:59 Intake Total 780 Balance 780 - Medications Medications: Current Medications Albuterol/Ipratropium (Duoneb 3 Mg/0.5 Mg (3 Ml) Ud) 3 ml INH RQ6 PRN PRN Reason: Shortness of Breath Last Admin: 07/25/17 08:02 Dose: 3 ml Carvedilol (Coreg) 12.5 mg PO BID [facility] Last Admin: 07/25/17 17:54 Dose: 12.5 mg Famotidine (Pepcid) 20 mg PO DAILY [facility] Last Admin: 07/25/17 10:46 Dose: 20 mg Fluticasone Propionate (Flonase) 1 spr NS DAILY [facility] Last Admin: 07/25/17 10:47 Dose: Not Given Heparin Sodium (Porcine) (Heparin) 5,000 units SC Q12H [facility] Last Admin: 07/25/17 10:48 Dose: Not Given Hydrochlorothiazide (Hydrodiuril) 25 mg PO DAILY [facility] Last Admin: 07/25/17 10:46 Dose: 25 mg Azithromycin 500 mg/ Sodium (Chloride) 250 mls @ 250 mls/hr IVPB DAILY [facility] Last Admin: 07/25/17 17:55 Dose: 250 mls/hr Ceftriaxone Sodium 1 gm/ (Sodium Chloride) 100 mls @ 100 mls/hr IVPB DAILY [facility] Last Admin: 07/25/17 16:52 Dose: 100 mls/hr Insulin Human Regular (Novolin R) 0 unit SC ACHS [facility] PRN Reason: Protocol Last Admin: 07/25/17 17:53 Dose: 1 unit Loratadine (Claritin) 10 mg PO DAILY [facility] Last Admin: 07/25/17 10:46 Dose: 10 mg Losartan Potassium (Cozaar) 100 mg PO DAILY [facility] Last Admin: 07/25/17 10:45 Dose: 100 mg Metformin HCl (Glucophage) 1,000 mg PO BID [facility] Montelukast Sodium (Singulair) 10 mg PO HS [facility] Multivitamins/Minerals (Therapeutic-M Tab) 1 tab PO DAILY [facility] Pantoprazole Sodium (Protonix Ec Tab) 20 mg PO DAILY [facility] Last Admin: 07/25/17 10:48 Dose: Not Given Pneumococcal Polyvalent Vaccine (Pneumovax 23 Vaccine) 0.5 ml IM .ONCE ONE Stop: 07/26/17 11:01 Rosuvastatin Calcium (Crestor) 5 mg PO HS [facility] Saccharomyces Boulardii (Florastor) 250 mg PO BID [facility] Last Admin: 07/25/17 17:54 Dose: 250 mg Fluticasone/Salmeterol (Advair Diskus 250/50) 1 puff IH Q12 [facility] Sitagliptin Phosphate (Januvia) 100 mg PO DAILY [facility] Last Admin: 07/25/17 10:46 Dose: 100 mg - Labs Labs: 07/25/17 01:38 07/25/17 01:38 Attending/Attestation - Attestation I have personally seen and examined this patient.: Yes I have fully participated in the care of the patient.: Yes I have reviewed all pertinent clinical information, including history, physical exam and plan: Yes Notes (Text): 07/25/17 19:38 Patient was seen and examined at 9:30 AM 07/25/17 Exam, assessment and plan were thoroughly gone over with the resident Also for ROS: NOT moved bowels today but yesterday she has diarrhea nonbloody Also on EXAM: HEENT: Can't assess extraocular muscles as patient is blind in both eyes Respriatory: decreased breath sounds left mid lung to lower lung russ Also for Assessment and Plan: Anemia Likely Secondary to Iron Deficiency: F/U Iron Studies and if low add Ferrous Sulfate 325 mg PO 2x/day with meals Medicine Team please do the following: F/U Rapid Influenza F/U Pleural Fluid labs and culture F/U Stool Studies F/U Blood Culture Nando Birch D.O.
[2017-07-25] MEDS: Magnesium Sulfate 1 gm in D5W 1 GM/100 ML BAG IVPB SCH ×2 (13:32→13:33)
[2017-07-25 13:45] LABS: BODY FLUID TYPE PLEURAL/THORACENTESI
[2017-07-25 14:35] LABS: BF GROSS APPEARANCE SL CLOUDY (CLEAR)
[2017-07-25 14:36] LABS: BODY FLUID TOTAL COUNT 100 (0-0)
--- NOTE | 2017-07-25 17:09 | RAD ---
HISTORY: Status post left thoracentesis. Relevant interventional procedure(s): Left thoracentesis July 25, 2017. COMPARISON: July 24, 2017. FINDINGS: LUNGS: Improved aeration of the left lung particularly the left lower lobe. PLEURA: Diminution in left pleural effusion. No pneumothorax identified. CARDIOVASCULAR: No significant interval change compared to the prior examination(s). OSSEOUS STRUCTURES: No significant abnormalities. VISUALIZED UPPER ABDOMEN: Normal. OTHER FINDINGS: None. IMPRESSION: No adverse findings following left thoracentesis. Specifically no evidence of pneumothorax.
[2017-07-25] MEDS: Azithromycin 500 MG in Sodium Chloride 0.9% 250 ML IVPB SCH (17:55)
--- NOTE | 2017-07-25 19:51 | CP.PCM.CON ---
History of Present Illness - History of Present Illness History of Present Illness: 56 yo F , presents to the ED for worsening shortness of breath that began 2 [employer] WITH COUGH . 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", HTN, left sided pyelonephritis 2015, hiatal hernia PSHx: EGD w/ biopsy 2012, cholecystectomy Allergies: NKA Home Medications: Carvedilol 12.5mg po bid, Fluticasone propionate 50mcg inh daily, Advair Diskus 1 puff IH q12, Ferralet 1 tab po daily, loratadine 10mg po qd, metformin 1000mg po bid, omeprazole 20mg po daily, onglyza 5mg po daily, valsartan 160-25mg qd, montelukast 10mg qd SocialHx: hx of 1/2 ppd for 20 years; denies alcohol and drugs; lives alone in apartment; unemployed; FamHx: Mom: Asthma, DM; Uncle: total b/l vision loss; 4 kids delivered, all premature, 2 shortly after childbirth, 1 child at 14 yrs and also with b/l vision loss, cause of unknown, "water in his head", 1 son alive with no medical problems Review of Systems - Constitutional Constitutional: As Per HPI, Chills, Fever - EENT Eyes: As Per HPI Ears: absent: As Per HPI, Decreased Hearing, Ear Discharge, Ear Pain, Tinnitus, Abnormal Hearing, Disequilibrium, Dizziness, Other Nose/Mouth/Throat: absent: As Per HPI, Epistaxis, Nasal Congestion, Nasal Discharge, Nasal Obstruction, Nasal Trauma, Nose Pain, Post Nasal Drip, Sinus Pain, Sinus Pressure, Bleeding Gums, Change in Voice, Dental Pain, Dry Mouth, Dysphagia, Halitosis, Hoarsness, Lip Swelling, Mouth Lesions, Mouth Pain, Odynophagia, Sore Throat, Throat Swelling, Tongue Swelling, Facial Pain, Neck Pain, Neck Mass, Other - Breasts Breasts: absent: As Per HPI, Change in Shape, Mass, Pain, Nipple Discharge, Nipple Inversion, Skin Changes, Swelling, Other - Cardiovascular Cardiovascular: absent: As Per HPI, Acrocyanosis, Chest Pain, Chest Pain at Rest , Chest Pain with Activity, Claudication, Diaphoresis, Dyspnea, Dyspnea on Exertion, Edema, Irregular Heart Rhythm, Pain Radiating to Arm/Neck/Jaw, Leg Edema, Leg Ulcers, Lightheadedness, Orthopnea, Palpitations, Paroxysmal Nocturnal Dyspnea, Pedal Edema, Radiating Pain, Rapid Heart Rate, Slow Heart Rate, Syncope, Other - Respiratory Respiratory: As Per HPI, Cough, Dyspnea. absent: Hemoptysis - Gastrointestinal Gastrointestinal: absent: As Per HPI, Abdominal Pain, Belching, Bloating, Change in Bowel Habits, Change in Stool Character, Coffee Ground Emesis, Constipation, Cramping, Diarrhea, Dyspepsia, Dysphagia, Early Satiety, Excessive Flatus, Fecal Incontinence, Heartburn, Hematemesis, Hematochezia, Loose Stools, Melena, Nausea, Odynophagia, Temesmus, Vomiting, Other - Genitourinary Genitourinary: absent: As Per HPI, Change in Urinary Stream, Difficulty Urinating, Dysuria, Flank Pain, Hematuria, Pyuria, Nocturia, Urinary Incontinence, Urinary Frequency, Urinary Hesitance, Urinary Urgency, Voiding Freq/Small Amts, Freq UTI, Hx Renal/Bladder Calculi, Hx /Renal Surgery, Bladder Distension, Other - Reproductive: Female Reproductive:Female: absent: As Per HPI, Amenorrhea, Amenorrhea/ Control, Currently Menstual, Cycle <21 Days, Cycle >35 Days, Cycle Variable, Menses 1-7 Days, Menses >/= 8 Days, Menses Variable, Cycle > 4 Weeks Between, No Menses for 6 Months, Heavy Menses, Light Menses, Normal Menses, Spotting Between Cycles , S/P Hysterectomy, Menopausal, Post Menopausal, Premenarche, Abnormal Vaginal Bleeding, Dysmenorrhea, Dyspareunia, Genital Lesions, Genital Pruritis, Pelvic Pain, Prolapse Symptoms, Sexual Dysfunction, Vaginal Discharge, Vaginal Dryness , Vaginal Odor, Vaginal Pruritis, Other - Menstruation Menstruation: absent: As Per HPI, Amenorrhea, Amenorrhea/ Control, Currently Menstual, Cycle <21 Days, Cycle >35 Days, Cycle Variable, Menses 1-7 Days, Menses >/= 8 Days, Menses Variable, Cycle > 4 Weeks Between, No Menses for 6 Months, Heavy Menses, Light Menses, Normal Menses, Spotting Between Cycles , S/P Hysterectomy, Menopausal, Post Menopausal, Premenarche, Abnormal Vaginal Bleeding, Dysmenorrhea, Other - Musculoskeletal Musculoskeletal: absent: As Per HPI, Abnormal Gait, Arthralgias, Atrophy, Back Pain, Deformity, Joint Swelling, Limited Range of Motion, Loss of Height, Muscle Cramps, Muscle Weakness, Myalgias, Neck Pain, Numbness, Radiating Pain into Limb, Stiffness, Tingling, Other - Integumentary Integumentary: absent: As Per HPI, Acne, Alopecia, Bleeding Lesions, Change in Hair, Change in Nails, Change in Pigmentation, Changing Lesions, Dry Skin, Erythema, Furuncle, Hirsutism, Lesions, New Lesions, Non-Healing Lesions, Photosensitivity, Pruritus, Rash, Skin Pain, Skin Ulcer, Sores, Striae, Swelling , Unusual Bruising, Wounds, Jaundice, Other - Neurological Neurological: absent: As Per HPI, Abnormal Gait, Abnormal Hearing, Abnormal Movements, Abnormal Speech, Behavioral Changes, Burning Sensations, Confusion, Convulsions, Disequilibrium, Dizziness, Numbness, Focal Weakness, Frequent Falls , Headaches, Lack of Coordination, Loss of Vision, Memory Loss, Paresthesias, Radicular Pain, Restless Legs, Sensory Deficit, Syncope, Tingling, Tremor, Vertigo, Weakness, Other Visual Disturbances, Other - Psychiatric Psychiatric: absent: As Per HPI, Abnormal Sleep Pattern, Anhedonia, Anxiety, Auditory Hallucinations, Behavioral Changes, Change in Appetite, Change in Libido, Confusion, Depression, Difficulty Concentrating, Hallucinations, Homicidal Ideation, Hopelessness, Irritability, Memory Loss, Mood Swings, Panic Attacks, Paranoia, Suicidal Ideation, Visual Hallucinations, Tactile Hallucinations, Other - Endocrine Endocrine: absent: As Per HPI, Change in Body Appearance, Change in Libido, Cold Intolorance, Deepening of Voice, Excessive Sweating, Fatigue, Flushing, Heat Intolorance, Increase in Ring/Shoe/Hat Size, Palpitations, Polydipsia, Polyphagia, Polyuria, Other - Hematologic/Lymphatic Hematologic: absent: As Per HPI, Easy Bleeding, Easy Bruising, Lymphadenopathy, Other Past Patient History - Past Medical History & Family History Past Medical History?: Yes - Past Social History Smoking Status: Never Smoked - CARDIAC Hx Hypertension: Yes - PULMONARY Hx Asthma: Yes - NEUROLOGICAL Hx Neurological Disorder: Yes HX Cerebrovascular Accident: Yes - HEENT Hx Blind: Yes Other/Comment: Legally blind - RENAL Hx Chronic Kidney Disease: No - ENDOCRINE/METABOLIC Hx Diabetes Mellitus Type 2: Yes - HEMATOLOGICAL/ONCOLOGICAL Hx Blood Disorders: No - INTEGUMENTARY Hx Dermatological Problems: No - MUSCULOSKELETAL/RHEUMATOLOGICAL Hx Musculoskeletal Disorders: No Hx Falls: No - GASTROINTESTINAL Hx Gastrointestinal Disorders: No - GENITOURINARY/GYNECOLOGICAL Hx Genitourinary Disorders: No - PSYCHIATRIC Hx Substance Use: No - SURGICAL HISTORY Hx Cholecystectomy: Yes - ANESTHESIA Hx Anesthesia: Yes Hx Anesthesia Reactions: No Meds Allergies/Adverse Reactions: Allergies Allergy/AdvReac Type Severity Reaction Status Date / Time No Known Allergies Allergy Verified 07/24/17 14:39 - Medications Medications: Current Medications Albuterol/Ipratropium (Duoneb 3 Mg/0.5 Mg (3 Ml) Ud) 3 ml INH RQ6 PRN PRN Reason: Shortness of Breath Last Admin: 07/25/17 08:02 Dose: 3 ml Carvedilol (Coreg) 12.5 mg PO BID [facility] Last Admin: 07/25/17 17:54 Dose: 12.5 mg Famotidine (Pepcid) 20 mg PO DAILY [facility] Last Admin: 07/25/17 10:46 Dose: 20 mg Fluticasone Propionate (Flonase) 1 spr NS DAILY [facility] Last Admin: 07/25/17 10:47 Dose: Not Given Heparin Sodium (Porcine) (Heparin) 5,000 units SC Q12H [facility] Last Admin: 07/25/17 10:48 Dose: Not Given Hydrochlorothiazide (Hydrodiuril) 25 mg PO DAILY [facility] Last Admin: 07/25/17 10:46 Dose: 25 mg Azithromycin 500 mg/ Sodium (Chloride) 250 mls @ 250 mls/hr IVPB DAILY [facility] Last Admin: 07/25/17 17:55 Dose: 250 mls/hr Ceftriaxone Sodium 1 gm/ (Sodium Chloride) 100 mls @ 100 mls/hr IVPB DAILY [facility] Last Admin: 07/25/17 16:52 Dose: 100 mls/hr Insulin Human Regular (Novolin R) 0 unit SC ACHS [facility] PRN Reason: Protocol Last Admin: 07/25/17 17:53 Dose: 1 unit Loratadine (Claritin) 10 mg PO DAILY [facility] Last Admin: 07/25/17 10:46 Dose: 10 mg Losartan Potassium (Cozaar) 100 mg PO DAILY [facility] Last Admin: 07/25/17 10:45 Dose: 100 mg Metformin HCl (Glucophage) 1,000 mg PO BID [facility] Montelukast Sodium (Singulair) 10 mg PO HS [facility] Multivitamins/Minerals (Therapeutic-M Tab) 1 tab PO DAILY [facility] Pantoprazole Sodium (Protonix Ec Tab) 20 mg PO DAILY [facility] Last Admin: 07/25/17 10:48 Dose: Not Given Pneumococcal Polyvalent Vaccine (Pneumovax 23 Vaccine) 0.5 ml IM .ONCE ONE Stop: 07/26/17 11:01 Rosuvastatin Calcium (Crestor) 5 mg PO HS [facility] Saccharomyces Boulardii (Florastor) 250 mg PO BID [facility] Last Admin: 07/25/17 17:54 Dose: 250 mg Fluticasone/Salmeterol (Advair Diskus 250/50) 1 puff IH Q12 [facility] Sitagliptin Phosphate (Januvia) 100 mg PO DAILY [facility] Last Admin: 07/25/17 10:46 Dose: 100 mg Physical Exam - Constitutional Appears: Non-toxic, Chronically Ill - Head Exam Head Exam: ATRAUMATIC, NORMOCEPHALIC - Eye Exam Eye Exam: PERRL. absent: Scleral icterus Additional comments: BLIND BILAT - ENT Exam ENT Exam: Mucous Membranes Dry - Neck Exam Neck exam: Negative for: Lymphadenopathy - Respiratory Exam Respiratory Exam: Decreased Breath Sounds, Rhonchi - Cardiovascular Exam Cardiovascular Exam: REGULAR RHYTHM, +S1, +S2 - GI/Abdominal Exam GI & Abdominal Exam: Diminished Bowel Sounds, Soft. absent: Tenderness - Rectal Exam Rectal Exam: Deferred - Exam Exam: NORMAL INSPECTION - Extremities Exam Extremities exam: Negative for: calf tenderness, tenderness, pedal pulses present - Back Exam Back exam: absent: CVA tenderness (L), CVA tenderness (R) - Neurological Exam Neurological exam: Alert, Oriented x3, Reflexes Normal - Psychiatric Exam Psychiatric exam: Normal Mood - Skin Skin Exam: Dry Results - Vital Signs Recent Vital Signs: Last Vital Signs Temp 98.1 F 07/25/17 16:00 Pulse 69 07/25/17 16:00 Resp 20 07/25/17 16:00 BP 146/87 07/25/17 17:54 Pulse Ox 92 L 07/25/17 16:00 - Labs Result Diagrams: 07/26/17 07:13 07/26/17 07:13 Labs: Laboratory Results - last 24 hr 07/25/17 07/25/17 07/25/17 01:38 01:38 01:38 WBC 11.4 H RBC 4.68 Hgb 10.8 L Hct 34.3 MCV 73.4 L MCH 23.1 L MCHC 31.4 L RDW 19.2 H Plt Count 368 MPV 8.3 Neut % (Auto) 75.0 Lymph % (Auto) 11.8 L [place] % (Auto) 10.6 H Eos % (Auto) 1.7 Baso % (Auto) 0.9 Neut # 8.6 H Lymph # 1.3 [place] # 1.2 H Eos # 0.2 Baso # 0.1 Sodium 136 Potassium 3.2 L Chloride 99 Carbon Dioxide 23 Anion Gap 17 BUN 7 Creatinine 0.6 L Est GFR ( Amer) > 60 Est GFR (Non-Af Amer) > 60 POC Glucose (mg/dL) Random Glucose 184 H Hemoglobin A1c 6.9 H Lactic Acid Calcium 9.1 Phosphorus Magnesium Iron TIBC % Saturation Ferritin Total Bilirubin 0.5 AST 15 ALT 17 Alkaline Phosphatase 76 Troponin I Total Protein 7.1 Albumin 3.6 Globulin 3.6 Albumin/Globulin Ratio 1.0 Procalcitonin Fluid Source Fluid Appearance Fluid WBC Fluid RBC Fluid Tot Cell Count Fluid Neutrophils Fluid Lymphocytes Fld Monocyte/Macrophag Fluid Comment 07/25/17 07/25/17 07/25/17 01:43 06:23 07:34 WBC RBC Hgb Hct MCV MCH MCHC RDW Plt Count MPV Neut % (Auto) Lymph % (Auto) [place] % (Auto) Eos % (Auto) Baso % (Auto) Neut # Lymph # [place] # Eos # Baso # Sodium Potassium Chloride Carbon Dioxide Anion Gap BUN Creatinine Est GFR ( Amer) Est GFR (Non-Af Amer) POC Glucose (mg/dL) 133 H Random Glucose Hemoglobin A1c Lactic Acid 1.9 Calcium Phosphorus Magnesium Iron 19 L TIBC 370 % Saturation 5 L Ferritin Total Bilirubin AST ALT Alkaline Phosphatase Troponin I Total Protein Albumin Globulin Albumin/Globulin Ratio Procalcitonin Fluid Source Fluid Appearance Fluid WBC Fluid RBC Fluid Tot Cell Count Fluid Neutrophils Fluid Lymphocytes Fld Monocyte/Macrophag Fluid Comment 07/25/17 07/25/17 07/25/17 08:17 11:27 11:27 WBC RBC Hgb Hct MCV MCH MCHC RDW Plt Count MPV Neut % (Auto) Lymph % (Auto) [place] % (Auto) Eos % (Auto) Baso % (Auto) Neut # Lymph # [place] # Eos # Baso # Sodium Potassium Chloride Carbon Dioxide Anion Gap BUN Creatinine Est GFR ( Amer) Est GFR (Non-Af Amer) POC Glucose (mg/dL) Random Glucose Hemoglobin A1c Lactic Acid Calcium Phosphorus Magnesium Iron TIBC % Saturation 6 L Ferritin 85.8 Total Bilirubin AST ALT Alkaline Phosphatase Troponin I Total Protein Albumin Globulin Albumin/Globulin Ratio Procalcitonin 0.12 L Fluid Source Fluid Appearance Fluid WBC Fluid RBC Fluid Tot Cell Count Fluid Neutrophils Fluid Lymphocytes Fld Monocyte/Macrophag Fluid Comment 07/25/17 07/25/17 07/25/17 11:27 12:54 13:43 WBC RBC Hgb Hct MCV MCH MCHC RDW Plt Count MPV Neut % (Auto) Lymph % (Auto) [place] % (Auto) Eos % (Auto) Baso % (Auto) Neut # Lymph # [place] # Eos # Baso # Sodium Potassium Chloride Carbon Dioxide Anion Gap BUN Creatinine Est GFR ( Amer) Est GFR (Non-Af Amer) POC Glucose (mg/dL) 208 H Random Glucose Hemoglobin A1c Lactic Acid Calcium Phosphorus 2.6 Magnesium 1.4 L Iron TIBC % Saturation Ferritin Total Bilirubin AST ALT Alkaline Phosphatase Troponin I < 0.0120 Total Protein Albumin Globulin Albumin/Globulin Ratio Procalcitonin Fluid Source Pleural/thoracentesi Fluid Appearance Sl cloudy Fluid WBC 1844.0 H Fluid RBC 1168.0 H Fluid Tot Cell Count 100 H Fluid Neutrophils 9.0 H Fluid Lymphocytes 83.0 H Fld Monocyte/Macrophag 1 H Fluid Comment 07/25/17 17:14 WBC RBC Hgb Hct MCV MCH MCHC RDW Plt Count MPV Neut % (Auto) Lymph % (Auto) [place] % (Auto) Eos % (Auto) Baso % (Auto) Neut # Lymph # [place] # Eos # Baso # Sodium Potassium Chloride Carbon Dioxide Anion Gap BUN Creatinine Est GFR ( Amer) Est GFR (Non-Af Amer) POC Glucose (mg/dL) 173 H Random Glucose Hemoglobin A1c Lactic Acid Calcium Phosphorus Magnesium Iron TIBC % Saturation Ferritin Total Bilirubin AST ALT Alkaline Phosphatase Troponin I Total Protein Albumin Globulin Albumin/Globulin Ratio Procalcitonin Fluid Source Fluid Appearance Fluid WBC Fluid RBC Fluid Tot Cell Count Fluid Neutrophils Fluid Lymphocytes Fld Monocyte/Macrophag Fluid Comment Assessment & Plan (1) Asthma Status: Acute (2) Diabetes mellitus Status: Acute (3) Dyspnea Status: Acute (4) HTN (hypertension) Status: Acute (5) Pleural effusion, left Status: Acute (6) Pneumonia Status: Acute - Assessment and Plan (Free Text) Assessment: PNEUMONIA WITH PLEURISY AWAIT CULTURES IF FLUID RE-ACCUMULATES MAY NEED CHEST TUBE ? VATS/ DECORTICATION
[2017-07-26] MEDS: (Novolin R) Insulin Human Regular 100 units/ml vial SC SCH ×4 (07:09→22:02)
[2017-07-26 07:31] LABS: BASO # 0.1 K/uL (0.0-0.2); BASO % 0.8 % (0.0-2.0); EOS # 0.3 K/uL (0.0-0.7); EOS % 3.8 % (0.0-4.0); HEMATOCRIT 33.2 % (34.0-47.0); LYMPH # 1.4 K/uL (1.0-4.3); LYMPH % 16.7 % (20.0-40.0); MEAN CELL VOLUME 73.5 fL (81.0-99.0); MEAN CORPUSCULAR HEMOGLOBIN 23.5 pg (27.0-31.0); MEAN CORPUSCULAR HGB CONC 31.9 g/dL (33.0-37.0); MEAN PLATELET VOLUME 8.2 fL (7.2-11.7); MONO % 11.3 % (0.0-10.0); NRBC % 0.1 % (0.0-2.0); WHITE BLOOD COUNT 8.6 K/uL (4.8-10.8)
[2017-07-26 08:01] LABS: CHLORIDE 100 mmol/L (98-107); POTASSIUM 3.9 mmol/L (3.6-5.2); SODIUM 140 mmol/L (132-148)
[2017-07-26 08:03] LABS: GFR AFRICAN-AMERICAN > 60
[2017-07-26 08:04] LABS: BLOOD UREA NITROGEN 7 mg/dL (7-17); CALCIUM 9.2 mg/dl (8.6-10.4); CARBON DIOXIDE 25 mmol/L (22-30); GLUCOSE,RANDOM 144 mg/dL (65-105); MAGNESIUM 1.5 mg/dL (1.6-2.3)
--- NOTE | 2017-07-26 09:55 | CP.PCM.PN ---
<Caitlin Amor - Last Filed: 07/26/17 18:11> Subjective - Date & Time of Evaluation Date of Evaluation: 07/26/17 Time of Evaluation: 09:19 - Subjective Subjective: Internal Medicine note for Dr. Sosa Patient seen and examined at bedside. Patient states she is feeling good today. No difficulty breathing, admitted to cough which is ongoing prior to admission. Patient has COPD. Patient denies fever, chills, difficulty urinating or problems with bowel movements. Objective - Vital Signs/Intake and Output Vital Signs (last 24 hours): Temp Pulse Resp BP Pulse Ox 97.6 F 59 L 20 132/81 94 L 07/26/17 00:00 07/26/17 01:00 07/26/17 00:00 07/26/17 00:00 07/26/17 00:00 Intake and Output: 07/26/17 07/26/17 06:59 18:59 Intake Total 600 Balance 600 - Medications Medications: Current Medications Albuterol/Ipratropium (Duoneb 3 Mg/0.5 Mg (3 Ml) Ud) 3 ml INH RQ6 PRN PRN Reason: Shortness of Breath Last Admin: 07/25/17 08:02 Dose: 3 ml Carvedilol (Coreg) 12.5 mg PO BID [facility] Last Admin: 07/25/17 17:54 Dose: 12.5 mg Famotidine (Pepcid) 20 mg PO DAILY [facility] Last Admin: 07/25/17 10:46 Dose: 20 mg Fluticasone Propionate (Flonase) 1 spr NS DAILY [facility] Last Admin: 07/25/17 10:47 Dose: Not Given Heparin Sodium (Porcine) (Heparin) 5,000 units SC Q12H [facility] Last Admin: 07/25/17 21:22 Dose: Not Given Hydrochlorothiazide (Hydrodiuril) 25 mg PO DAILY [facility] Last Admin: 07/25/17 10:46 Dose: 25 mg Azithromycin 500 mg/ Sodium (Chloride) 250 mls @ 250 mls/hr IVPB DAILY [facility] Last Admin: 07/25/17 17:55 Dose: 250 mls/hr Ceftriaxone Sodium 1 gm/ (Sodium Chloride) 100 mls @ 100 mls/hr IVPB DAILY [facility] Last Admin: 07/25/17 16:52 Dose: 100 mls/hr Magnesium Sulfate/Dextrose (Magnesium Sulfate 1 Gm/100 Ml D5w) 1 gm in 100 mls @ 300 mls/hr IVPB Q30M [facility] Stop: 07/26/17 10:19 Insulin Human Regular (Novolin R) 0 unit SC ACHS [facility] PRN Reason: Protocol Last Admin: 07/26/17 07:09 Dose: Not Given Loratadine (Claritin) 10 mg PO DAILY [facility] Last Admin: 07/25/17 10:46 Dose: 10 mg Losartan Potassium (Cozaar) 100 mg PO DAILY [facility] Last Admin: 07/25/17 10:45 Dose: 100 mg Metformin HCl (Glucophage) 1,000 mg PO BID [facility] Montelukast Sodium (Singulair) 10 mg PO HS [facility] Last Admin: 07/25/17 21:20 Dose: 10 mg Multivitamins/Minerals (Therapeutic-M Tab) 1 tab PO DAILY [facility] Pantoprazole Sodium (Protonix Ec Tab) 20 mg PO DAILY [facility] Last Admin: 07/25/17 10:48 Dose: Not Given Pneumococcal Polyvalent Vaccine (Pneumovax 23 Vaccine) 0.5 ml IM .ONCE ONE Stop: 07/26/17 11:01 Rosuvastatin Calcium (Crestor) 5 mg PO HS [facility] Last Admin: 07/25/17 21:20 Dose: 5 mg Saccharomyces Boulardii (Florastor) 250 mg PO BID [facility] Last Admin: 07/25/17 17:54 Dose: 250 mg Fluticasone/Salmeterol (Advair Diskus 250/50) 1 puff IH Q12 [facility] Sitagliptin Phosphate (Januvia) 100 mg PO DAILY [facility] Last Admin: 07/25/17 10:46 Dose: 100 mg - Labs Labs: 07/26/17 07:13 07/26/17 07:13 - Constitutional Appears: Non-toxic - Head Exam Head Exam: NORMAL INSPECTION - Eye Exam Eye Exam: EOMI, Normal appearance - ENT Exam ENT Exam: Mucous Membranes Moist - Neck Exam Neck Exam: Full ROM - Respiratory Exam Respiratory Exam: Decreased Breath Sounds, NORMAL BREATHING PATTERN. absent: Accessory Muscle Use, Clear to Ausculation Bilateral, Respiratory Distress - Cardiovascular Exam Cardiovascular Exam: absent: Bradycardia, Tachycardia - GI/Abdominal Exam GI & Abdominal Exam: Soft. absent: Tenderness - Extremities Exam Extremities Exam: Full ROM, Normal Inspection. absent: Pedal Edema - Neurological Exam Neurological Exam: Alert, Awake, Normal Gait, Oriented x3 - Psychiatric Exam Psychiatric exam: Normal Affect, Normal Mood - Skin Skin Exam: Dry, Intact, Normal Color, Warm Assessment and Plan - Assessment and Plan (Free Text) Assessment: (1) Pleural effusion, left Assessment and Plan: Possibly 2/2 to pneumonia w/ atypical presentation; elevated WBC; sob, dry cough , extra-pulmonary symptoms: mid-sternal/rt sided chest pain and abd pain worse w / inspiration, subjective fever, headache, nausea, diarrhea CTA Chest: large left pleural effusion partially loculated, no evidence for PE CXR: small left pleural effusion Troponin negative ProBNP 260 07/25 blood culture, f/u Procalcitonin 0.12 Lactate Mycoplasma IgG S.pneumoniae Ag Sputum culture Legionella Ag urine influenza a/b negative 07/25 IR consult: Dr. Dg James took out 300cc of yellow fluid Labs ordered to analyze fluid f/u gram stain, pH, glucose, amylase, cholesterol, cytology f/u CBC daily thoracentesis evaluation: appearance SL cloudy per lab (not per post operative note) WBC 1844 RBC 1168 Total cell count 100 Fluid Neutrophils 9.0 Fluid lymphocytes 83.0 Fluid Monocyte/Macrophages 1 Labs that were ordered 07/25 not done: f/u pleural pH, pleural LDH, pleural total protein, glucose serum LDH, serum total protein, ceftriaxone 1gm IVPB daily azithromycin 500mg IVPB daily f/u Pulmonology Consult: Dr. James (2) Chest Pain Troponin I negative Procalcitonin 0.12 07/25: d-dimer 905 07/25 CT Chest: no PE, Left pleural effusion (3) Asthma Assessment and Plan: Moderate persistent asthma w/ inhaler use 1-2x a day Duoneb Q6H PRN continue with home medications: fluticasone propionate 1 spr ns daily, fluticasone/salmeterol 1 putt IH q12, montelukast 10mg po hs, loratadine 10mg po daily (4) Diabetes mellitus Assessment and Plan: Hx of DM2, HgA1C 6.9 Regular insulin sliding scale - low dose protocol metformin 1000 PO BID to restart ([address]) diabetic diet (5) Hypertension Assessment and Plan: Hx of HTN; BP well controlled con't home med carvedilol 12.5mg po bid con't home med valsartan 160-25mg qd, equivalent losartan 100mg and hydrochlorothiazide 25mg (6) Prophylaxis Assessment and Plan: GI: Pantoprazole 20mg POQD DVT: Heparin 5000u SC Q12H Diet: diabetic diet 6) Hypomagnesemia 1.4, repleted Iron 19, TIBC 370 %saturation 6 <Rick Sierra - Last Filed: 07/27/17 10:18> Objective - Vital Signs/Intake and Output Vital Signs (last 24 hours): Temp Pulse Resp BP Pulse Ox 97.5 F L 63 20 151/85 H 95 07/27/17 08:50 07/27/17 08:50 07/27/17 08:50 07/27/17 08:50 07/27/17 08:50 Intake and Output: 07/27/17 07/27/17 06:59 18:59 Intake Total 300 Output Total 600 Balance -300 - Medications Medications: Current Medications Albuterol/Ipratropium (Duoneb 3 Mg/0.5 Mg (3 Ml) Ud) 3 ml INH RQ6 PRN PRN Reason: Shortness of Breath Last Admin: 07/25/17 08:02 Dose: 3 ml Carvedilol (Coreg) 12.5 mg PO BID [facility] Last Admin: 07/26/17 17:49 Dose: 12.5 mg Dextrose (Dextrose 50% Inj) 0 ml IV STAT PRN; Protocol PRN Reason: Hyglycemia Protocol Dextrose (Glutose 15) 0 gm PO ONCE PRN; Protocol PRN Reason: Hypoglycemia Protocol Famotidine (Pepcid) 20 mg PO DAILY [facility] Last Admin: 07/26/17 10:02 Dose: 20 mg Fluticasone Propionate (Flonase) 1 spr NS DAILY [facility] Last Admin: 07/26/17 10:03 Dose: 1 spr Glucagon (Glucagen Diagnostic Kit) 0 mg IM STAT PRN; Protocol PRN Reason: Hypoglycemia Protocol Heparin Sodium (Porcine) (Heparin) 5,000 units SC Q12H [facility] Last Admin: 07/26/17 21:19 Dose: 5,000 units Hydrochlorothiazide (Hydrodiuril) 25 mg PO DAILY [facility] Last Admin: 07/26/17 10:02 Dose: 25 mg Azithromycin 500 mg/ Sodium (Chloride) 250 mls @ 250 mls/hr IVPB DAILY [facility] Last Admin: 07/26/17 12:40 Dose: 250 mls/hr Ceftriaxone Sodium 1 gm/ (Sodium Chloride) 100 mls @ 100 mls/hr IVPB DAILY [facility] Last Admin: 07/26/17 12:38 Dose: 100 mls/hr Dextrose (Dextrose 5% In Water 1000 Ml) 1,000 mls @ 0 mls/hr IV .Q0M PRN; Protocol; Per Protocol PRN Reason: Hypoglycemia Protocol Insulin Human Regular (Novolin R) 0 unit SC ACHS [facility] PRN Reason: Protocol Last Admin: 07/27/17 09:03 Dose: 1 unit Loratadine (Claritin) 10 mg PO DAILY [facility] Last Admin: 07/26/17 10:02 Dose: 10 mg Losartan Potassium (Cozaar) 100 mg PO DAILY [facility] Last Admin: 07/26/17 10:02 Dose: 100 mg Metformin HCl (Glucophage) 1,000 mg PO BID [facility] Last Admin: 07/27/17 09:03 Dose: Not Given Montelukast Sodium (Singulair) 10 mg PO HS [facility] Last Admin: 07/26/17 21:08 Dose: 10 mg Multivitamins/Minerals (Therapeutic-M Tab) 1 tab PO DAILY [facility] Last Admin: 07/26/17 10:02 Dose: 1 tab Pantoprazole Sodium (Protonix Ec Tab) 20 mg PO DAILY [facility] Last Admin: 07/26/17 10:03 Dose: 20 mg Rosuvastatin Calcium (Crestor) 5 mg PO HS [facility] Last Admin: 07/26/17 21:08 Dose: 5 mg Saccharomyces Boulardii (Florastor) 250 mg PO BID [facility] Last Admin: 07/26/17 17:49 Dose: 250 mg Fluticasone/Salmeterol (Advair Diskus 250/50) 1 puff IH Q12 [facility] Sitagliptin Phosphate (Januvia) 100 mg PO DAILY [facility] Last Admin: 07/26/17 10:02 Dose: 100 mg - Labs Labs: 07/26/17 07:13 07/26/17 07:13 Attending/Attestation - Attestation I have personally seen and examined this patient.: Yes I have fully participated in the care of the patient.: Yes I have reviewed all pertinent clinical information, including history, physical exam and plan: Yes Notes (Text): Pneumonia Loculated pleural effusion s/p IR drainage
[2017-07-26] MEDS: Saccharomyces Boulardi 250 mg Cap PO SCH ×2 (10:02→17:49)
[2017-07-26] MEDS: Multivitamin With Minerals Tab PO SCH (10:02)
[2017-07-26] MEDS: Magnesium Sulfate 1 gm in D5W 1 GM/100 ML BAG IVPB SCH ×4 (10:03→12:11)
[2017-07-26] MEDS: Pantoprazole 20 mg EC Tab PO SCH (10:03)
[2017-07-26] MEDS: Fluticasone Nasal 50 mcg/Spray NS SCH (10:03)
[2017-07-26] MEDS ORDERED: Pneumococcal 23-Valent Vaccine IM ONE (11:00)
[2017-07-26] MEDS: Azithromycin 500 MG in Sodium Chloride 0.9% 250 ML IVPB SCH (12:40)
--- NOTE | 2017-07-26 13:59 | CP.PCM.PN ---
Subjective - Date & Time of Evaluation Date of Evaluation: 07/26/17 Time of Evaluation: 08:00 - Subjective Subjective: APPEARS COMFORTABLE AWAKE ALERT NAD Objective - Vital Signs/Intake and Output Vital Signs (last 24 hours): Temp Pulse Resp BP Pulse Ox 98.3 F 63 18 152/91 H 94 L 07/26/17 07:45 07/26/17 07:45 07/26/17 07:45 07/26/17 10:02 07/26/17 07:45 Intake and Output: 07/26/17 07/26/17 06:59 18:59 Intake Total 600 Balance 600 - Medications Medications: Current Medications Albuterol/Ipratropium (Duoneb 3 Mg/0.5 Mg (3 Ml) Ud) 3 ml INH RQ6 PRN PRN Reason: Shortness of Breath Last Admin: 07/25/17 08:02 Dose: 3 ml Carvedilol (Coreg) 12.5 mg PO BID [facility] Last Admin: 07/26/17 10:02 Dose: 12.5 mg Famotidine (Pepcid) 20 mg PO DAILY [facility] Last Admin: 07/26/17 10:02 Dose: 20 mg Fluticasone Propionate (Flonase) 1 spr NS DAILY [facility] Last Admin: 07/26/17 10:03 Dose: 1 spr Heparin Sodium (Porcine) (Heparin) 5,000 units SC Q12H [facility] Last Admin: 07/26/17 10:03 Dose: 5,000 units Hydrochlorothiazide (Hydrodiuril) 25 mg PO DAILY [facility] Last Admin: 07/26/17 10:02 Dose: 25 mg Azithromycin 500 mg/ Sodium (Chloride) 250 mls @ 250 mls/hr IVPB DAILY [facility] Last Admin: 07/26/17 12:40 Dose: 250 mls/hr Ceftriaxone Sodium 1 gm/ (Sodium Chloride) 100 mls @ 100 mls/hr IVPB DAILY [facility] Last Admin: 07/26/17 12:38 Dose: 100 mls/hr Insulin Human Regular (Novolin R) 0 unit SC ACHS [facility] PRN Reason: Protocol Last Admin: 07/26/17 12:55 Dose: 1 unit Loratadine (Claritin) 10 mg PO DAILY [facility] Last Admin: 07/26/17 10:02 Dose: 10 mg Losartan Potassium (Cozaar) 100 mg PO DAILY [facility] Last Admin: 07/26/17 10:02 Dose: 100 mg Metformin HCl (Glucophage) 1,000 mg PO BID [facility] Montelukast Sodium (Singulair) 10 mg PO HS [facility] Last Admin: 07/25/17 21:20 Dose: 10 mg Multivitamins/Minerals (Therapeutic-M Tab) 1 tab PO DAILY [facility] Last Admin: 07/26/17 10:02 Dose: 1 tab Pantoprazole Sodium (Protonix Ec Tab) 20 mg PO DAILY [facility] Last Admin: 07/26/17 10:03 Dose: 20 mg Rosuvastatin Calcium (Crestor) 5 mg PO HS [facility] Last Admin: 07/25/17 21:20 Dose: 5 mg Saccharomyces Boulardii (Florastor) 250 mg PO BID [facility] Last Admin: 07/26/17 10:02 Dose: 250 mg Fluticasone/Salmeterol (Advair Diskus 250/50) 1 puff IH Q12 [facility] Sitagliptin Phosphate (Januvia) 100 mg PO DAILY [facility] Last Admin: 07/26/17 10:02 Dose: 100 mg - Labs Labs: 07/26/17 07:13 07/26/17 07:13 - Constitutional Appears: Non-toxic, Cachectic, Chronically Ill - Head Exam Head Exam: NORMOCEPHALIC - Eye Exam Eye Exam: absent: Scleral icterus Additional comments: BLIND - ENT Exam ENT Exam: Mucous Membranes Dry, Normal Oropharynx - Neck Exam Neck Exam: absent: Lymphadenopathy - Respiratory Exam Respiratory Exam: Decreased Breath Sounds, Rales, Rhonchi - Cardiovascular Exam Cardiovascular Exam: REGULAR RHYTHM, +S1, +S2 - GI/Abdominal Exam GI & Abdominal Exam: Distended, Soft - Rectal Exam Rectal Exam: Deferred - Exam Exam: NORMAL INSPECTION - Extremities Exam Extremities Exam: absent: Pedal Edema - Back Exam Back Exam: absent: CVA tenderness (L), CVA tenderness (R) - Neurological Exam Neurological Exam: Alert, Awake, Oriented x3 - Psychiatric Exam Psychiatric exam: Normal Mood - Skin Skin Exam: Dry Assessment and Plan (1) Asthma Status: Acute (2) Diabetes mellitus Status: Acute (3) Dyspnea Status: Acute (4) HTN (hypertension) Status: Acute (5) Pleural effusion, left Status: Acute (6) Pneumonia Status: Acute - Assessment and Plan (Free Text) Plan: CONT IV RX FOR PNEUMONIA FOLLOW UP CXR AWAIT CULTURES [facility] NEG
[2017-07-26] MEDS ORDERED: Dextrose 50% SYRINGE Inj (50 ml) IV PRN (18:16)
[2017-07-26] MEDS ORDERED: Glucagon Recombinant 1 mg Inj IM PRN (18:16)
--- NOTE | 2017-07-26 21:56 | CP.PCM.CON ---
Past Patient History - Past Medical History & Family History Past Medical History?: Yes - Past Social History Smoking Status: Never Smoked - CARDIAC Hx Hypertension: Yes - PULMONARY Hx Asthma: Yes - NEUROLOGICAL Hx Neurological Disorder: Yes HX Cerebrovascular Accident: Yes - HEENT Hx Blind: Yes Other/Comment: Legally blind - RENAL Hx Chronic Kidney Disease: No - ENDOCRINE/METABOLIC Hx Diabetes Mellitus Type 2: Yes - HEMATOLOGICAL/ONCOLOGICAL Hx Blood Disorders: No - INTEGUMENTARY Hx Dermatological Problems: No - MUSCULOSKELETAL/RHEUMATOLOGICAL Hx Musculoskeletal Disorders: No Hx Falls: No - GASTROINTESTINAL Hx Gastrointestinal Disorders: No - GENITOURINARY/GYNECOLOGICAL Hx Genitourinary Disorders: No - PSYCHIATRIC Hx Substance Use: No - SURGICAL HISTORY Hx Cholecystectomy: Yes - ANESTHESIA Hx Anesthesia: Yes Hx Anesthesia Reactions: No Meds Allergies/Adverse Reactions: Allergies Allergy/AdvReac Type Severity Reaction Status Date / Time No Known Allergies Allergy Verified 07/24/17 14:39 - Medications Medications: Current Medications Albuterol/Ipratropium (Duoneb 3 Mg/0.5 Mg (3 Ml) Ud) 3 ml INH RQ6 PRN PRN Reason: Shortness of Breath Last Admin: 07/25/17 08:02 Dose: 3 ml Carvedilol (Coreg) 12.5 mg PO BID [facility] Last Admin: 07/26/17 17:49 Dose: 12.5 mg Dextrose (Dextrose 50% Inj) 0 ml IV STAT PRN; Protocol PRN Reason: Hyglycemia Protocol Dextrose (Glutose 15) 0 gm PO ONCE PRN; Protocol PRN Reason: Hypoglycemia Protocol Famotidine (Pepcid) 20 mg PO DAILY [facility] Last Admin: 07/26/17 10:02 Dose: 20 mg Fluticasone Propionate (Flonase) 1 spr NS DAILY [facility] Last Admin: 07/26/17 10:03 Dose: 1 spr Glucagon (Glucagen Diagnostic Kit) 0 mg IM STAT PRN; Protocol PRN Reason: Hypoglycemia Protocol Heparin Sodium (Porcine) (Heparin) 5,000 units SC Q12H [facility] Last Admin: 07/26/17 21:19 Dose: 5,000 units Hydrochlorothiazide (Hydrodiuril) 25 mg PO DAILY [facility] Last Admin: 07/26/17 10:02 Dose: 25 mg Azithromycin 500 mg/ Sodium (Chloride) 250 mls @ 250 mls/hr IVPB DAILY [facility] Last Admin: 07/26/17 12:40 Dose: 250 mls/hr Ceftriaxone Sodium 1 gm/ (Sodium Chloride) 100 mls @ 100 mls/hr IVPB DAILY [facility] Last Admin: 07/26/17 12:38 Dose: 100 mls/hr Dextrose (Dextrose 5% In Water 1000 Ml) 1,000 mls @ 0 mls/hr IV .Q0M PRN; Protocol; Per Protocol PRN Reason: Hypoglycemia Protocol Insulin Human Regular (Novolin R) 0 unit SC ACHS [facility] PRN Reason: Protocol Last Admin: 07/26/17 16:35 Dose: Not Given Loratadine (Claritin) 10 mg PO DAILY [facility] Last Admin: 07/26/17 10:02 Dose: 10 mg Losartan Potassium (Cozaar) 100 mg PO DAILY [facility] Last Admin: 07/26/17 10:02 Dose: 100 mg Metformin HCl (Glucophage) 1,000 mg PO BID [facility] Montelukast Sodium (Singulair) 10 mg PO HS [facility] Last Admin: 07/26/17 21:08 Dose: 10 mg Multivitamins/Minerals (Therapeutic-M Tab) 1 tab PO DAILY [facility] Last Admin: 07/26/17 10:02 Dose: 1 tab Pantoprazole Sodium (Protonix Ec Tab) 20 mg PO DAILY [facility] Last Admin: 07/26/17 10:03 Dose: 20 mg Rosuvastatin Calcium (Crestor) 5 mg PO HS [facility] Last Admin: 07/26/17 21:08 Dose: 5 mg Saccharomyces Boulardii (Florastor) 250 mg PO BID [facility] Last Admin: 07/26/17 17:49 Dose: 250 mg Fluticasone/Salmeterol (Advair Diskus 250/50) 1 puff IH Q12 [facility] Sitagliptin Phosphate (Januvia) 100 mg PO DAILY [facility] Last Admin: 07/26/17 10:02 Dose: 100 mg Results - Vital Signs Recent Vital Signs: Last Vital Signs Temp 98.5 F 07/26/17 16:00 Pulse 67 07/26/17 16:00 Resp 20 07/26/17 16:00 BP 140/60 07/26/17 17:49 Pulse Ox 95 07/26/17 16:00 - Labs Result Diagrams: 07/26/17 07:13 07/26/17 07:13 Labs: Laboratory Results - last 24 hr 07/25/17 07/25/17 07/26/17 07:55 Unknown 06:31 WBC RBC Hgb Hct MCV MCH MCHC RDW Plt Count MPV Neut % (Auto) Lymph % (Auto) [place] % (Auto) Eos % (Auto) Baso % (Auto) Neut # Lymph # [place] # Eos # Baso # Sodium Potassium Chloride Carbon Dioxide Anion Gap BUN Creatinine Est GFR ( Amer) Est GFR (Non-Af Amer) POC Glucose (mg/dL) 148 H Random Glucose Calcium Magnesium Influenza Typ A,B (EIA) Negative for flu a/b Ur L.pneumophila Ag Negative 07/26/17 07/26/17 07/26/17 07:13 07:13 11:54 WBC 8.6 RBC 4.51 Hgb 10.6 L Hct 33.2 L MCV 73.5 L MCH 23.5 L MCHC 31.9 L RDW 19.0 H Plt Count 414 H MPV 8.2 Neut % (Auto) 67.4 Lymph % (Auto) 16.7 L [place] % (Auto) 11.3 H Eos % (Auto) 3.8 Baso % (Auto) 0.8 Neut # 5.8 Lymph # 1.4 [place] # 1.0 H Eos # 0.3 Baso # 0.1 Sodium 140 Potassium 3.9 Chloride 100 Carbon Dioxide 25 Anion Gap 19 BUN 7 Creatinine 0.6 L Est GFR ( Amer) > 60 Est GFR (Non-Af Amer) > 60 POC Glucose (mg/dL) 197 H Random Glucose 144 H Calcium 9.2 Magnesium 1.5 L Influenza Typ A,B (EIA) Ur L.pneumophila Ag 07/26/17 07/26/17 16:12 21:19 WBC RBC Hgb Hct MCV MCH MCHC RDW Plt Count MPV Neut % (Auto) Lymph % (Auto) [place] % (Auto) Eos % (Auto) Baso % (Auto) Neut # Lymph # [place] # Eos # Baso # Sodium Potassium Chloride Carbon Dioxide Anion Gap BUN Creatinine Est GFR ( Amer) Est GFR (Non-Af Amer) POC Glucose (mg/dL) 148 H 226 H Random Glucose Calcium Magnesium Influenza Typ A,B (EIA) Ur L.pneumophila Ag
[2017-07-27 08:53] VITALS: RESP 20
[2017-07-27] MEDS: (Novolin R) Insulin Human Regular 100 units/ml vial SC SCH ×4 (09:03→23:23)
[2017-07-27] MEDS: Pantoprazole 20 mg EC Tab PO SCH (10:58)
[2017-07-27] MEDS: Saccharomyces Boulardi 250 mg Cap PO SCH ×2 (10:58→18:40)
[2017-07-27] MEDS: Multivitamin With Minerals Tab PO SCH (10:58)
[2017-07-27] MEDS: Fluticasone Nasal 50 mcg/Spray NS SCH (11:04)
[2017-07-27 11:39] LABS: BASO # 0.1 K/uL (0.0-0.2); EOS # 0.3 K/uL (0.0-0.7); EOS % 4.2 % (0.0-4.0); HEMATOCRIT 33.5 % (34.0-47.0); LYMPH # 1.6 K/uL (1.0-4.3); LYMPH % 19.9 % (20.0-40.0); MEAN CELL VOLUME 73.6 fL (81.0-99.0); MEAN CORPUSCULAR HGB CONC 32.6 g/dL (33.0-37.0); MEAN PLATELET VOLUME 8.2 fL (7.2-11.7); MONO # 0.6 K/uL (0.0-0.8); MONO % 7.5 % (0.0-10.0); RED CELL DISTRIBUTION WIDTH 18.8 % (11.5-14.5); WHITE BLOOD COUNT 7.9 K/uL (4.8-10.8)
[2017-07-27 11:54] LABS: CHLORIDE 97 mmol/L (98-107); POTASSIUM 3.9 mmol/L (3.6-5.2); SODIUM 136 mmol/L (132-148)
[2017-07-27 11:57] LABS: ALKALINE PHOSPHATASE 76 U/L (38-126); ALT/SGPT 32 U/L (9-52); AST/SGOT 21 U/L (14-36); BILIRUBIN,TOTAL 0.2 mg/dL (0.2-1.3); BLOOD UREA NITROGEN 8 mg/dL (7-17); CALCIUM 10.2 mg/dl (8.6-10.4); CARBON DIOXIDE 28 mmol/L (22-30); GFR AFRICAN-AMERICAN > 60; GLUCOSE,RANDOM 154 mg/dL (65-105); TOTAL PROTEIN 6.8 g/dL (6.3-8.3)
[2017-07-27] MEDS: Azithromycin 500 MG in Sodium Chloride 0.9% 250 ML IVPB SCH (12:37)
--- NOTE | 2017-07-27 12:43 | CP.PCM.PN ---
<Levy Mcgee - Last Filed: 07/27/17 12:40> Subjective - Date & Time of Evaluation Date of Evaluation: 07/27/17 Time of Evaluation: 12:43 - Subjective Subjective: Pt seen and examined at bedside this AM; no acute complaints and no overnight events; is breathing well; denies fevers/chills, WHITLOCK, CP, SOB, abdominal pain, N/ V/D, dysuria/freq/urg or lower extremity pain/swelling Objective - Vital Signs/Intake and Output Vital Signs (last 24 hours): Temp Pulse Resp BP Pulse Ox 97.5 F L 63 20 161/110 H 95 07/27/17 08:50 07/27/17 08:50 07/27/17 08:50 07/27/17 11:03 07/27/17 08:50 Intake and Output: 07/27/17 07/27/17 06:59 18:59 Intake Total 300 Output Total 600 Balance -300 - Medications Medications: Current Medications Albuterol/Ipratropium (Duoneb 3 Mg/0.5 Mg (3 Ml) Ud) 3 ml INH RQ6 PRN PRN Reason: Shortness of Breath Last Admin: 07/25/17 08:02 Dose: 3 ml Carvedilol (Coreg) 12.5 mg PO BID [facility] Last Admin: 07/27/17 11:03 Dose: 12.5 mg Dextrose (Dextrose 50% Inj) 0 ml IV STAT PRN; Protocol PRN Reason: Hyglycemia Protocol Dextrose (Glutose 15) 0 gm PO ONCE PRN; Protocol PRN Reason: Hypoglycemia Protocol Famotidine (Pepcid) 20 mg PO DAILY [facility] Last Admin: 07/27/17 10:58 Dose: 20 mg Fluticasone Propionate (Flonase) 1 spr NS DAILY [facility] Last Admin: 07/27/17 11:04 Dose: 1 spr Glucagon (Glucagen Diagnostic Kit) 0 mg IM STAT PRN; Protocol PRN Reason: Hypoglycemia Protocol Heparin Sodium (Porcine) (Heparin) 5,000 units SC Q12H [facility] Last Admin: 07/27/17 11:03 Dose: 5,000 units Hydrochlorothiazide (Hydrodiuril) 25 mg PO DAILY [facility] Last Admin: 07/27/17 11:03 Dose: 25 mg Azithromycin 500 mg/ Sodium (Chloride) 250 mls @ 250 mls/hr IVPB DAILY [facility] Last Admin: 07/27/17 12:37 Dose: 250 mls/hr Ceftriaxone Sodium 1 gm/ (Sodium Chloride) 100 mls @ 100 mls/hr IVPB DAILY [facility] Last Admin: 07/27/17 10:57 Dose: 100 mls/hr Dextrose (Dextrose 5% In Water 1000 Ml) 1,000 mls @ 0 mls/hr IV .Q0M PRN; Protocol; Per Protocol PRN Reason: Hypoglycemia Protocol Insulin Human Regular (Novolin R) 0 unit SC ACHS [facility] PRN Reason: Protocol Last Admin: 07/27/17 09:03 Dose: 1 unit Loratadine (Claritin) 10 mg PO DAILY [facility] Last Admin: 07/27/17 10:57 Dose: 10 mg Losartan Potassium (Cozaar) 100 mg PO DAILY [facility] Last Admin: 07/27/17 11:02 Dose: 100 mg Metformin HCl (Glucophage) 1,000 mg PO BID [facility] Last Admin: 07/27/17 09:03 Dose: Not Given Montelukast Sodium (Singulair) 10 mg PO HS [facility] Last Admin: 07/26/17 21:08 Dose: 10 mg Multivitamins/Minerals (Therapeutic-M Tab) 1 tab PO DAILY [facility] Last Admin: 07/27/17 10:58 Dose: 1 tab Pantoprazole Sodium (Protonix Ec Tab) 20 mg PO DAILY [facility] Last Admin: 07/27/17 10:58 Dose: 20 mg Rosuvastatin Calcium (Crestor) 5 mg PO HS [facility] Last Admin: 07/26/17 21:08 Dose: 5 mg Saccharomyces Boulardii (Florastor) 250 mg PO BID [facility] Last Admin: 07/27/17 10:58 Dose: 250 mg Fluticasone/Salmeterol (Advair Diskus 250/50) 1 puff IH Q12 [facility] Sitagliptin Phosphate (Januvia) 100 mg PO DAILY [facility] Last Admin: 07/27/17 10:57 Dose: 100 mg - Labs Labs: 07/27/17 11:29 07/27/17 11:29 - Constitutional Appears: Well, Non-toxic - Head Exam Head Exam: ATRAUMATIC - Eye Exam Eye Exam: EOMI Pupil Exam: PERRL - ENT Exam ENT Exam: Mucous Membranes Moist - Neck Exam Neck Exam: Full ROM - Respiratory Exam Respiratory Exam: Clear to Ausculation Bilateral, NORMAL BREATHING PATTERN - Cardiovascular Exam Cardiovascular Exam: REGULAR RHYTHM - GI/Abdominal Exam GI & Abdominal Exam: Soft, Normal Bowel Sounds - Extremities Exam Extremities Exam: Full ROM. absent: Calf Tenderness - Back Exam Back Exam: NORMAL INSPECTION. absent: CVA tenderness (L), CVA tenderness (R) - Neurological Exam Neurological Exam: Alert, Awake, Normal Gait, Oriented x3 - Psychiatric Exam Psychiatric exam: Normal Affect Assessment and Plan - Assessment and Plan (Free Text) Assessment: Pleural effusion, left; improved and resolving Possibly 2/2 to pneumonia w/ atypical presentation; elevated WBC; sob, dry cough , extra-pulmonary symptoms: mid-sternal/rt sided chest pain and abd pain worse w / inspiration, subjective fever, headache, nausea, diarrhea CTA Chest: large left pleural effusion partially loculated, no evidence for PE CXR: small left pleural effusion Troponin negative ProBNP 260 07/25 blood culture negative to date Procalcitonin 0.12 influenza a/b negative 07/25 IR consult: Dr. Dg James took out 300cc of yellow fluid Thoracentesis evaluation: appearance SL cloudy per lab (not per post operative note) WBC 1844 RBC 1168 Total cell count 100 Fluid Neutrophils 9.0 Fluid lymphocytes 83.0 Fluid Monocyte/Macrophages 1 ceftriaxone 1gm IVPB daily azithromycin 500mg IVPB daily f/u Pulmonology Consult: Dr. James Chest Pain; resolved most likely 2/2 to effusion Troponin I negative Procalcitonin 0.12 07/25: d-dimer 905 07/25 CT Chest: no PE, Left pleural effusion Asthma; controlled Moderate persistent asthma w/ inhaler use 1-2x a day Duoneb Q6H PRN continue with home medications: fluticasone propionate 1 spr ns daily, fluticasone/salmeterol 1 putt IH q12, montelukast 10mg po hs, loratadine 10mg po daily Diabetes mellitus Hx of DM2, HgA1C 6.9 Regular insulin sliding scale - low dose protocol metformin 1000 PO BID to restart ([address]) diabetic diet Hypertension Hx of HTN; BP well controlled con't home med carvedilol 12.5mg po bid con't home med valsartan 160-25mg qd, equivalent losartan 100mg and hydrochlorothiazide 25mg Prophylaxis GI: Pantoprazole 20mg POQD DVT: Heparin 5000u SC Q12H Diet: diabetic diet <Mariela,Rick - Last Filed: 07/28/17 14:32> Objective - Vital Signs/Intake and Output Vital Signs (last 24 hours): Temp Pulse Resp BP Pulse Ox 98.3 F 93 H 20 133/82 95 07/28/17 07:41 07/28/17 08:00 07/28/17 07:41 07/28/17 09:23 07/28/17 07:41 - Medications Medications: Current Medications Albuterol/Ipratropium (Duoneb 3 Mg/0.5 Mg (3 Ml) Ud) 3 ml INH RQ6 PRN PRN Reason: Shortness of Breath Last Admin: 07/25/17 08:02 Dose: 3 ml Carvedilol (Coreg) 12.5 mg PO BID [facility] Last Admin: 07/28/17 09:23 Dose: 12.5 mg Dextrose (Dextrose 50% Inj) 0 ml IV STAT PRN; Protocol PRN Reason: Hyglycemia Protocol Dextrose (Glutose 15) 0 gm PO ONCE PRN; Protocol PRN Reason: Hypoglycemia Protocol Famotidine (Pepcid) 20 mg PO DAILY [facility] Last Admin: 07/28/17 09:17 Dose: 20 mg Fluticasone Propionate (Flonase) 1 spr NS DAILY [facility] Last Admin: 07/28/17 09:23 Dose: 1 spr Glucagon (Glucagen Diagnostic Kit) 0 mg IM STAT PRN; Protocol PRN Reason: Hypoglycemia Protocol Hydrochlorothiazide (Hydrodiuril) 25 mg PO DAILY [facility] Last Admin: 07/28/17 09:17 Dose: 25 mg Azithromycin 500 mg/ Sodium (Chloride) 250 mls @ 250 mls/hr IVPB DAILY [facility] Last Admin: 07/28/17 09:31 Dose: 250 mls/hr Ceftriaxone Sodium 1 gm/ (Sodium Chloride) 100 mls @ 100 mls/hr IVPB DAILY [facility] Last Admin: 07/28/17 09:30 Dose: 100 mls/hr Dextrose (Dextrose 5% In Water 1000 Ml) 1,000 mls @ 0 mls/hr IV .Q0M PRN; Protocol; Per Protocol PRN Reason: Hypoglycemia Protocol Insulin Human Regular (Novolin R) 0 unit SC ACHS [facility] PRN Reason: Protocol Last Admin: 07/28/17 12:44 Dose: 1 unit Loratadine (Claritin) 10 mg PO DAILY [facility] Last Admin: 07/28/17 09:17 Dose: 10 mg Losartan Potassium (Cozaar) 100 mg PO DAILY [facility] Last Admin: 07/28/17 09:17 Dose: 100 mg Metformin HCl (Glucophage) 1,000 mg PO BID [facility] Last Admin: 07/28/17 10:30 Dose: 1,000 mg Montelukast Sodium (Singulair) 10 mg PO HS [facility] Last Admin: 07/27/17 21:43 Dose: 10 mg Multivitamins/Minerals (Therapeutic-M Tab) 1 tab PO DAILY [facility] Last Admin: 07/28/17 09:17 Dose: 1 tab Pantoprazole Sodium (Protonix Ec Tab) 20 mg PO DAILY [facility] Last Admin: 07/28/17 09:23 Dose: 20 mg Rosuvastatin Calcium (Crestor) 5 mg PO HS [facility] Last Admin: 07/27/17 21:43 Dose: 5 mg Saccharomyces Boulardii (Florastor) 250 mg PO BID [facility] Last Admin: 07/28/17 09:17 Dose: 250 mg Fluticasone/Salmeterol (Advair Diskus 250/50) 1 puff IH RQ12 [facility] Sitagliptin Phosphate (Januvia) 100 mg PO DAILY [facility] Last Admin: 07/28/17 09:17 Dose: 100 mg - Labs Labs: 07/28/17 08:19 07/28/17 08:19 Attending/Attestation - Attestation I have personally seen and examined this patient.: Yes I have fully participated in the care of the patient.: Yes I have reviewed all pertinent clinical information, including history, physical exam and plan: Yes Notes (Text): Pleural effusion, left; improved and resolving Possibly 2/2 to pneumonia
[2017-07-28 06:02] LABS: CARDIOLIPIN AB (IGA) <11 APL (<=11)
[2017-07-28 06:15] LABS: B2 GLYCOPROTEIN I AB(IGA) <9 SAU (<=20); B2 GLYCOPROTEIN I AB(IGG) <9 SGU (<=20); B2 GLYCOPROTEIN I AB(IGM) <9 SMU (<=20)
[2017-07-28] MEDS: (Novolin R) Insulin Human Regular 100 units/ml vial SC SCH ×4 (08:19→22:00)
[2017-07-28 08:40] LABS: BASO # 0.1 K/uL (0.0-0.2); BASO % 0.7 % (0.0-2.0); EOS # 0.4 K/uL (0.0-0.7); EOS % 3.3 % (0.0-4.0); LYMPH # 1.6 K/uL (1.0-4.3); LYMPH % 15.3 % (20.0-40.0); MEAN CELL VOLUME 74.2 fL (81.0-99.0); MEAN CORPUSCULAR HEMOGLOBIN 23.6 pg (27.0-31.0); MEAN CORPUSCULAR HGB CONC 31.8 g/dL (33.0-37.0); MEAN PLATELET VOLUME 8.2 fL (7.2-11.7); MONO # 0.6 K/uL (0.0-0.8); MONO % 5.6 % (0.0-10.0); RED CELL DISTRIBUTION WIDTH 18.9 % (11.5-14.5); WHITE BLOOD COUNT 10.6 K/uL (4.8-10.8)
[2017-07-28] MEDS: Multivitamin With Minerals Tab PO SCH (09:17)
[2017-07-28] MEDS: Saccharomyces Boulardi 250 mg Cap PO SCH ×2 (09:17→18:25)
[2017-07-28 09:23] LABS: CHLORIDE 96 mmol/L (98-107)
[2017-07-28] MEDS: Pantoprazole 20 mg EC Tab PO SCH (09:23)
[2017-07-28] MEDS: Fluticasone Nasal 50 mcg/Spray NS SCH (09:23)
[2017-07-28 09:24] LABS: POTASSIUM 3.9 mmol/L (3.6-5.2); SODIUM 138 mmol/L (132-148)
[2017-07-28 09:26] LABS: ALB/GLOB RATIO 0.9 (1.0-2.1); ALKALINE PHOSPHATASE 87 U/L (38-126); AST/SGOT 21 U/L (14-36); BILIRUBIN,TOTAL 0.3 mg/dL (0.2-1.3); BLOOD UREA NITROGEN 10 mg/dL (7-17); CARBON DIOXIDE 28 mmol/L (22-30); GFR AFRICAN-AMERICAN > 60; TOTAL PROTEIN 7.2 g/dL (6.3-8.3)
[2017-07-28 09:27] LABS: ALT/SGPT 28 U/L (9-52); CALCIUM 9.6 mg/dl (8.6-10.4); GLUCOSE,RANDOM 124 mg/dL (65-105)
[2017-07-28] MEDS: Azithromycin 500 MG in Sodium Chloride 0.9% 250 ML IVPB SCH (09:31)
--- NOTE | 2017-07-28 13:58 | CP.PCM.PN ---
<Levy Mcgee - Last Filed: 07/28/17 13:56> Subjective - Date & Time of Evaluation Date of Evaluation: 07/28/17 Time of Evaluation: 13:57 - Subjective Subjective: Pt seen and examined at bedside this AM; denies any overnight or acute events; really wants to go home; denies any fevers/chills, WHITLOCK, SOB, abdominal pain, N/V/ D, dysuria/freq/urg or lower extremity pain/swelling. Objective - Vital Signs/Intake and Output Vital Signs (last 24 hours): Temp Pulse Resp BP Pulse Ox 98.3 F 93 H 20 133/82 95 07/28/17 07:41 07/28/17 08:00 07/28/17 07:41 07/28/17 09:23 07/28/17 07:41 - Medications Medications: Current Medications Albuterol/Ipratropium (Duoneb 3 Mg/0.5 Mg (3 Ml) Ud) 3 ml INH RQ6 PRN PRN Reason: Shortness of Breath Last Admin: 07/25/17 08:02 Dose: 3 ml Carvedilol (Coreg) 12.5 mg PO BID [facility] Last Admin: 07/28/17 09:23 Dose: 12.5 mg Dextrose (Dextrose 50% Inj) 0 ml IV STAT PRN; Protocol PRN Reason: Hyglycemia Protocol Dextrose (Glutose 15) 0 gm PO ONCE PRN; Protocol PRN Reason: Hypoglycemia Protocol Famotidine (Pepcid) 20 mg PO DAILY [facility] Last Admin: 07/28/17 09:17 Dose: 20 mg Fluticasone Propionate (Flonase) 1 spr NS DAILY [facility] Last Admin: 07/28/17 09:23 Dose: 1 spr Glucagon (Glucagen Diagnostic Kit) 0 mg IM STAT PRN; Protocol PRN Reason: Hypoglycemia Protocol Hydrochlorothiazide (Hydrodiuril) 25 mg PO DAILY [facility] Last Admin: 07/28/17 09:17 Dose: 25 mg Azithromycin 500 mg/ Sodium (Chloride) 250 mls @ 250 mls/hr IVPB DAILY [facility] Last Admin: 07/28/17 09:31 Dose: 250 mls/hr Ceftriaxone Sodium 1 gm/ (Sodium Chloride) 100 mls @ 100 mls/hr IVPB DAILY [facility] Last Admin: 07/28/17 09:30 Dose: 100 mls/hr Dextrose (Dextrose 5% In Water 1000 Ml) 1,000 mls @ 0 mls/hr IV .Q0M PRN; Protocol; Per Protocol PRN Reason: Hypoglycemia Protocol Insulin Human Regular (Novolin R) 0 unit SC ACHS [facility] PRN Reason: Protocol Last Admin: 07/28/17 12:44 Dose: 1 unit Loratadine (Claritin) 10 mg PO DAILY [facility] Last Admin: 07/28/17 09:17 Dose: 10 mg Losartan Potassium (Cozaar) 100 mg PO DAILY [facility] Last Admin: 07/28/17 09:17 Dose: 100 mg Metformin HCl (Glucophage) 1,000 mg PO BID [facility] Last Admin: 07/28/17 10:30 Dose: 1,000 mg Montelukast Sodium (Singulair) 10 mg PO HS [facility] Last Admin: 07/27/17 21:43 Dose: 10 mg Multivitamins/Minerals (Therapeutic-M Tab) 1 tab PO DAILY [facility] Last Admin: 07/28/17 09:17 Dose: 1 tab Pantoprazole Sodium (Protonix Ec Tab) 20 mg PO DAILY [facility] Last Admin: 07/28/17 09:23 Dose: 20 mg Rosuvastatin Calcium (Crestor) 5 mg PO HS [facility] Last Admin: 07/27/17 21:43 Dose: 5 mg Saccharomyces Boulardii (Florastor) 250 mg PO BID [facility] Last Admin: 07/28/17 09:17 Dose: 250 mg Fluticasone/Salmeterol (Advair Diskus 250/50) 1 puff IH RQ12 [facility] Sitagliptin Phosphate (Januvia) 100 mg PO DAILY [facility] Last Admin: 07/28/17 09:17 Dose: 100 mg - Labs Labs: 07/28/17 08:19 07/28/17 08:19 - Constitutional Appears: Well, Non-toxic - Head Exam Head Exam: ATRAUMATIC - Eye Exam Eye Exam: EOMI Pupil Exam: PERRL - ENT Exam ENT Exam: Mucous Membranes Moist - Neck Exam Neck Exam: Full ROM. absent: Lymphadenopathy - Respiratory Exam Respiratory Exam: Clear to Ausculation Bilateral, NORMAL BREATHING PATTERN. absent: Rales, Rhonchi, Wheezes - Cardiovascular Exam Cardiovascular Exam: REGULAR RHYTHM, +S1, +S2 - Rectal Exam Rectal Exam: Deferred - Extremities Exam Extremities Exam: Full ROM. absent: Calf Tenderness - Back Exam Back Exam: NORMAL INSPECTION. absent: CVA tenderness (L), CVA tenderness (R) - Neurological Exam Neurological Exam: Alert, Awake, Normal Gait, Oriented x3 - Psychiatric Exam Psychiatric exam: Normal Affect - Skin Skin Exam: Warm Assessment and Plan - Assessment and Plan (Free Text) Assessment: Pleural effusion, left; improved and resolved Possibly 2/2 to pneumonia w/ atypical presentation; elevated WBC; sob, dry cough , extra-pulmonary symptoms: mid-sternal/rt sided chest pain and abd pain worse w / inspiration, subjective fever, headache, nausea, diarrhea CTA Chest: large left pleural effusion partially loculated, no evidence for PE CXR: small left pleural effusion Troponin negative ProBNP 260 07/25 blood culture negative to date Procalcitonin 0.12 influenza a/b negative 07/25 IR consult: Dr. Dg James took out 300cc of yellow fluid Thoracentesis evaluation: appearance SL cloudy per lab (not per post operative note) WBC 1844 RBC 1168 Total cell count 100 Fluid Neutrophils 9.0 Fluid lymphocytes 83.0 Fluid Monocyte/Macrophages 1 -no growth to date ceftriaxone 1gm IVPB daily azithromycin 500mg IVPB daily f/u Pulmonology Consult: Dr. James Chest Pain; resolved most likely 2/2 to effusion Troponin I negative Procalcitonin 0.12 07/25: d-dimer 905 07/25 CT Chest: no PE, Left pleural effusion Asthma; controlled Moderate persistent asthma w/ inhaler use 1-2x a day Duoneb Q6H PRN continue with home medications: fluticasone propionate 1 spr ns daily, fluticasone/salmeterol 1 putt IH q12, montelukast 10mg po hs, loratadine 10mg po daily Diabetes mellitus Hx of DM2, HgA1C 6.9 Regular insulin sliding scale - low dose protocol metformin 1000 PO BID to restart ([address]) diabetic diet Hypertension Hx of HTN; BP well controlled con't home med carvedilol 12.5mg po bid con't home med valsartan 160-25mg qd, equivalent losartan 100mg and hydrochlorothiazide 25mg Prophylaxis GI: Pantoprazole 20mg POQD DVT: Heparin 5000u SC Q12H Diet: diabetic diet the patient will likely be stable for d/c tomorrow 07/29 Dr. Levy Mcgee PGY2 note for Dr. Sierra <Rick Sierra - Last Filed: 07/28/17 14:38> Objective - Vital Signs/Intake and Output Vital Signs (last 24 hours): Temp Pulse Resp BP Pulse Ox 98.3 F 93 H 20 133/82 95 07/28/17 07:41 07/28/17 08:00 07/28/17 07:41 07/28/17 09:23 07/28/17 07:41 - Medications Medications: Current Medications Albuterol/Ipratropium (Duoneb 3 Mg/0.5 Mg (3 Ml) Ud) 3 ml INH RQ6 PRN PRN Reason: Shortness of Breath Last Admin: 07/25/17 08:02 Dose: 3 ml Carvedilol (Coreg) 12.5 mg PO BID [facility] Last Admin: 07/28/17 09:23 Dose: 12.5 mg Dextrose (Dextrose 50% Inj) 0 ml IV STAT PRN; Protocol PRN Reason: Hyglycemia Protocol Dextrose (Glutose 15) 0 gm PO ONCE PRN; Protocol PRN Reason: Hypoglycemia Protocol Famotidine (Pepcid) 20 mg PO DAILY [facility] Last Admin: 07/28/17 09:17 Dose: 20 mg Fluticasone Propionate (Flonase) 1 spr NS DAILY [facility] Last Admin: 07/28/17 09:23 Dose: 1 spr Glucagon (Glucagen Diagnostic Kit) 0 mg IM STAT PRN; Protocol PRN Reason: Hypoglycemia Protocol Hydrochlorothiazide (Hydrodiuril) 25 mg PO DAILY [facility] Last Admin: 07/28/17 09:17 Dose: 25 mg Azithromycin 500 mg/ Sodium (Chloride) 250 mls @ 250 mls/hr IVPB DAILY [facility] Last Admin: 07/28/17 09:31 Dose: 250 mls/hr Ceftriaxone Sodium 1 gm/ (Sodium Chloride) 100 mls @ 100 mls/hr IVPB DAILY [facility] Last Admin: 07/28/17 09:30 Dose: 100 mls/hr Dextrose (Dextrose 5% In Water 1000 Ml) 1,000 mls @ 0 mls/hr IV .Q0M PRN; Protocol; Per Protocol PRN Reason: Hypoglycemia Protocol Insulin Human Regular (Novolin R) 0 unit SC ACHS [facility] PRN Reason: Protocol Last Admin: 07/28/17 12:44 Dose: 1 unit Loratadine (Claritin) 10 mg PO DAILY [facility] Last Admin: 07/28/17 09:17 Dose: 10 mg Losartan Potassium (Cozaar) 100 mg PO DAILY [facility] Last Admin: 07/28/17 09:17 Dose: 100 mg Metformin HCl (Glucophage) 1,000 mg PO BID [facility] Last Admin: 07/28/17 10:30 Dose: 1,000 mg Montelukast Sodium (Singulair) 10 mg PO HS [facility] Last Admin: 07/27/17 21:43 Dose: 10 mg Multivitamins/Minerals (Therapeutic-M Tab) 1 tab PO DAILY [facility] Last Admin: 07/28/17 09:17 Dose: 1 tab Pantoprazole Sodium (Protonix Ec Tab) 20 mg PO DAILY [facility] Last Admin: 07/28/17 09:23 Dose: 20 mg Rosuvastatin Calcium (Crestor) 5 mg PO HS [facility] Last Admin: 07/27/17 21:43 Dose: 5 mg Saccharomyces Boulardii (Florastor) 250 mg PO BID [facility] Last Admin: 07/28/17 09:17 Dose: 250 mg Fluticasone/Salmeterol (Advair Diskus 250/50) 1 puff IH RQ12 [facility] Sitagliptin Phosphate (Januvia) 100 mg PO DAILY [facility] Last Admin: 07/28/17 09:17 Dose: 100 mg - Labs Labs: 07/28/17 08:19 07/28/17 08:19 Attending/Attestation - Attestation I have personally seen and examined this patient.: Yes I have fully participated in the care of the patient.: Yes I have reviewed all pertinent clinical information, including history, physical exam and plan: Yes Notes (Text): Pleural effusion, left; improved and resolving Possibly 2/2 to pneumonia
--- NOTE | 2017-07-28 15:57 | CP.PCM.PN ---
Subjective - Date & Time of Evaluation Date of Evaluation: 07/28/17 Time of Evaluation: 09:00 - Subjective Subjective: feels better afeb/ nad Objective - Vital Signs/Intake and Output Vital Signs (last 24 hours): Temp Pulse Resp BP Pulse Ox 99.2 F 83 20 121/76 96 07/28/17 15:46 07/28/17 15:46 07/28/17 15:46 07/28/17 15:46 07/28/17 15:46 - Medications Medications: Current Medications Albuterol/Ipratropium (Duoneb 3 Mg/0.5 Mg (3 Ml) Ud) 3 ml INH RQ6 PRN PRN Reason: Shortness of Breath Last Admin: 07/25/17 08:02 Dose: 3 ml Carvedilol (Coreg) 12.5 mg PO BID [facility] Last Admin: 07/28/17 09:23 Dose: 12.5 mg Dextrose (Dextrose 50% Inj) 0 ml IV STAT PRN; Protocol PRN Reason: Hyglycemia Protocol Dextrose (Glutose 15) 0 gm PO ONCE PRN; Protocol PRN Reason: Hypoglycemia Protocol Famotidine (Pepcid) 20 mg PO DAILY [facility] Last Admin: 07/28/17 09:17 Dose: 20 mg Fluticasone Propionate (Flonase) 1 spr NS DAILY [facility] Last Admin: 07/28/17 09:23 Dose: 1 spr Glucagon (Glucagen Diagnostic Kit) 0 mg IM STAT PRN; Protocol PRN Reason: Hypoglycemia Protocol Hydrochlorothiazide (Hydrodiuril) 25 mg PO DAILY [facility] Last Admin: 07/28/17 09:17 Dose: 25 mg Azithromycin 500 mg/ Sodium (Chloride) 250 mls @ 250 mls/hr IVPB DAILY [facility] Last Admin: 07/28/17 09:31 Dose: 250 mls/hr Ceftriaxone Sodium 1 gm/ (Sodium Chloride) 100 mls @ 100 mls/hr IVPB DAILY [facility] Last Admin: 07/28/17 09:30 Dose: 100 mls/hr Dextrose (Dextrose 5% In Water 1000 Ml) 1,000 mls @ 0 mls/hr IV .Q0M PRN; Protocol; Per Protocol PRN Reason: Hypoglycemia Protocol Insulin Human Regular (Novolin R) 0 unit SC ACHS [facility] PRN Reason: Protocol Last Admin: 07/28/17 12:44 Dose: 1 unit Loratadine (Claritin) 10 mg PO DAILY [facility] Last Admin: 07/28/17 09:17 Dose: 10 mg Losartan Potassium (Cozaar) 100 mg PO DAILY [facility] Last Admin: 07/28/17 09:17 Dose: 100 mg Metformin HCl (Glucophage) 1,000 mg PO BID [facility] Last Admin: 07/28/17 10:30 Dose: 1,000 mg Montelukast Sodium (Singulair) 10 mg PO HS [facility] Last Admin: 07/27/17 21:43 Dose: 10 mg Multivitamins/Minerals (Therapeutic-M Tab) 1 tab PO DAILY [facility] Last Admin: 07/28/17 09:17 Dose: 1 tab Pantoprazole Sodium (Protonix Ec Tab) 20 mg PO DAILY [facility] Last Admin: 07/28/17 09:23 Dose: 20 mg Rosuvastatin Calcium (Crestor) 5 mg PO HS [facility] Last Admin: 07/27/17 21:43 Dose: 5 mg Saccharomyces Boulardii (Florastor) 250 mg PO BID [facility] Last Admin: 07/28/17 09:17 Dose: 250 mg Fluticasone/Salmeterol (Advair Diskus 250/50) 1 puff IH RQ12 [facility] Sitagliptin Phosphate (Januvia) 100 mg PO DAILY [facility] Last Admin: 07/28/17 09:17 Dose: 100 mg - Labs Labs: 07/28/17 08:19 07/28/17 08:19 - Constitutional Appears: Non-toxic, Chronically Ill - Head Exam Head Exam: NORMOCEPHALIC - Eye Exam Additional comments: blind - ENT Exam ENT Exam: Mucous Membranes Dry - Neck Exam Neck Exam: absent: Lymphadenopathy - Respiratory Exam Respiratory Exam: Decreased Breath Sounds - Cardiovascular Exam Cardiovascular Exam: REGULAR RHYTHM - GI/Abdominal Exam GI & Abdominal Exam: Distended, Soft - Rectal Exam Rectal Exam: Deferred - Exam Exam: NORMAL INSPECTION - Extremities Exam Extremities Exam: absent: Pedal Edema - Back Exam Back Exam: absent: CVA tenderness (L), CVA tenderness (R) - Neurological Exam Neurological Exam: Alert, Awake - Psychiatric Exam Psychiatric exam: Depressed - Skin Skin Exam: Dry Assessment and Plan (1) Asthma Status: Acute (2) Diabetes mellitus Status: Acute (3) Dyspnea Status: Acute (4) HTN (hypertension) Status: Acute (5) Pleural effusion, left Status: Acute (6) Pneumonia Status: Acute
[2017-07-28] MEDS ORDERED: Fluticasone-Salmeterol 250-50mcg Diskus IH SCH (20:00)
[2017-07-29] MEDS: (Novolin R) Insulin Human Regular 100 units/ml vial SC SCH ×2 (07:33→12:43)
[2017-07-29 08:29] LABS: BASO # 0.1 K/uL (0.0-0.2); BASO % 0.5 % (0.0-2.0); CHLORIDE 97 mmol/L (98-107); EOS # 0.4 K/uL (0.0-0.7); EOS % 4.1 % (0.0-4.0); LYMPH # 1.8 K/uL (1.0-4.3); LYMPH % 16.4 % (20.0-40.0); MEAN CELL VOLUME 73.6 fL (81.0-99.0); MEAN CORPUSCULAR HEMOGLOBIN 23.6 pg (27.0-31.0); MEAN CORPUSCULAR HGB CONC 32.1 g/dL (33.0-37.0); MEAN PLATELET VOLUME 7.9 fL (7.2-11.7); MONO # 0.8 K/uL (0.0-0.8); MONO % 7.1 % (0.0-10.0); RED CELL DISTRIBUTION WIDTH 18.7 % (11.5-14.5); WHITE BLOOD COUNT 10.8 K/uL (4.8-10.8)
[2017-07-29 08:30] LABS: POTASSIUM 3.9 mmol/L (3.6-5.2); SODIUM 140 mmol/L (132-148)
[2017-07-29 08:32] LABS: AST/SGOT 20 U/L (14-36); BILIRUBIN,TOTAL 0.4 mg/dL (0.2-1.3); CARBON DIOXIDE 28 mmol/L (22-30); GFR AFRICAN-AMERICAN > 60
[2017-07-29 08:33] LABS: ALKALINE PHOSPHATASE 95 U/L (38-126); ALT/SGPT 31 U/L (9-52); BLOOD UREA NITROGEN 10 mg/dL (7-17); GLUCOSE,RANDOM 129 mg/dL (65-105); TOTAL PROTEIN 7.3 g/dL (6.3-8.3)
[2017-07-29 08:34] LABS: CALCIUM 9.9 mg/dl (8.6-10.4)
[2017-07-29 08:47] VITALS: BP 139/85; PULSE 62; TEMP 98.2; O2SAT 91
[2017-07-29] MEDS: Saccharomyces Boulardi 250 mg Cap PO SCH (10:07)
[2017-07-29] MEDS: Multivitamin With Minerals Tab PO SCH (10:07)
[2017-07-29] MEDS: Azithromycin 500 MG in Sodium Chloride 0.9% 250 ML IVPB SCH (10:08)
[2017-07-29] MEDS: Pantoprazole 20 mg EC Tab PO SCH (10:08)
[2017-07-29] MEDS: Fluticasone Nasal 50 mcg/Spray NS SCH (10:09)
--- NOTE | 2017-07-29 12:58 | CARD ---
APPROVED REPORT EKG Measurement Heart [id number] [place] [id number] <Conclusion> Normal sinus rhythm Left axis deviation Abnormal ECG
--- NOTE | 2017-07-29 14:29 | CP.PCM.DIS ---
<Caitlin Amor - Last Filed: 07/29/17 21:16> Provider - Provider Date of Admission: 07/24/17 20:26 Attending physician: Gene Olivares MD Consults: ID consult: Dr. Mariano Pulmonology: Dr. James IR: Dr. James Time Spent in preparation of Discharge (in minutes): 35 Hospital Course - Lab Results Lab Results: Micro Results 07/26/17 17:23 Stool Stool Culture - Final NO SALMONELLA, SHIGELLA OR CAMPYLOBACTER ISOLATED. 07/24/17 18:30 Blood-Venous Blood Culture - Preliminary NO GROWTH AFTER 4 DAYS 07/24/17 17:54 Blood-Venous Blood Culture - Preliminary NO GROWTH AFTER 4 DAYS 07/26/17 17:22 Stool Ova and Parasite Concentrate Exam - Final 07/25/17 13:43 Pleural Fluid Gram Stain - Final Most Recent Lab Values WBC 10.8 K/uL (4.8-10.8) 07/29/17 07:54 RBC 4.76 Mil/uL (3.80-5.20) 07/29/17 07:54 Hgb 11.2 g/dL (11.0-16.0) 07/29/17 07:54 Hct 35.0 % (34.0-47.0) 07/29/17 07:54 MCV 73.6 fL (81.0-99.0) L 07/29/17 07:54 MCH 23.6 pg (27.0-31.0) L 07/29/17 07:54 MCHC 32.1 g/dL (33.0-37.0) L 07/29/17 07:54 RDW 18.7 % (11.5-14.5) H 07/29/17 07:54 Plt Count 465 K/uL (130-400) H 07/29/17 07:54 MPV 7.9 fL (7.2-11.7) 07/29/17 07:54 Neut % (Auto) 71.9 % (50.0-75.0) 07/29/17 07:54 Lymph % (Auto) 16.4 % (20.0-40.0) L 07/29/17 07:54 Lanier % (Auto) 7.1 % (0.0-10.0) 07/29/17 07:54 Eos % (Auto) 4.1 % (0.0-4.0) H 07/29/17 07:54 Baso % (Auto) 0.5 % (0.0-2.0) 07/29/17 07:54 Neut # 7.8 K/uL (1.8-7.0) H 07/29/17 07:54 Lymph # 1.8 K/uL (1.0-4.3) 07/29/17 07:54 Lanier # 0.8 K/uL (0.0-0.8) 07/29/17 07:54 Eos # 0.4 K/uL (0.0-0.7) 07/29/17 07:54 Baso # 0.1 K/uL (0.0-0.2) 07/29/17 07:54 Neutrophils % (Manual) 82 % (50-75) H 07/24/17 15:31 Band Neutrophils % 1 % (0-2) 07/24/17 15:31 Lymphocytes % (Manual) 7 % (20-40) L 07/24/17 15:31 Monocytes % (Manual) 10 % (0-10) 07/24/17 15:31 Platelet Estimate Normal (NORMAL) 07/24/17 15:31 Large Platelets Present 07/24/17 15:31 Giant Platelets Present 07/24/17 15:31 Poikilocytosis (manual Slight 07/24/17 15:31 Anisocytosis (manual) Slight 07/24/17 15:31 Ovalocytes Slight 07/24/17 15:31 D-Dimer, Quantitative 905 ng/mlDDU (0-243) H 07/24/17 15:31 Sodium 140 mmol/L (132-148) 07/29/17 07:54 Potassium 3.9 mmol/L (3.6-5.2) 07/29/17 07:54 Chloride 97 mmol/L (98-107) L 07/29/17 07:54 Carbon Dioxide 28 mmol/L (22-30) 07/29/17 07:54 Anion Gap 19 (10-20) 07/29/17 07:54 BUN 10 mg/dL (7-17) 07/29/17 07:54 Creatinine 0.6 MG/DL (0.7-1.2) L 07/29/17 07:54 Est GFR ( Amer) > 60 07/29/17 07:54 Est GFR (Non-Af Amer) > 60 07/29/17 07:54 POC Glucose (mg/dL) 144 mg/dL (65-110) H 07/29/17 12:07 Random Glucose 129 mg/dL (65-105) H 07/29/17 07:54 Hemoglobin A1c 6.9 % (4.2-6.5) H 07/25/17 01:38 Lactic Acid 1.9 mmol/L (0.7-2.1) 07/25/17 01:43 Calcium 9.9 mg/dl (8.6-10.4) 07/29/17 07:54 Phosphorus 2.6 mg/dL (2.5-4.5) 07/25/17 11:27 Magnesium 1.5 mg/dL (1.6-2.3) L 07/26/17 07:13 Iron 19 ug/dL (37-170) L 07/25/17 07:34 TIBC 370 ug/dL (250-450) 07/25/17 07:34 % Saturation 6 (20-55) L 07/25/17 11:27 Ferritin 85.8 ng/mL 07/25/17 11:27 Total Bilirubin 0.4 mg/dL (0.2-1.3) 07/29/17 07:54 AST 20 U/L (14-36) 07/29/17 07:54 ALT 31 U/L (9-52) 07/29/17 07:54 Alkaline Phosphatase 95 U/L (38-126) 07/29/17 07:54 Troponin I < 0.0120 ng/mL (0.00-0.120) 07/25/17 11:27 NT-Pro-B Natriuret Pep 260 pg/mL (0-900) 07/24/17 15:31 Total Protein 7.3 g/dL (6.3-8.3) 07/29/17 07:54 Albumin 3.7 g/dL (3.5-5.0) 07/29/17 07:54 Globulin 3.6 gm/dL (2.2-3.9) 07/29/17 07:54 Albumin/Globulin Ratio 1.0 (1.0-2.1) 07/29/17 07:54 Lipase 51 U/L (23-300) 07/24/17 15:31 Procalcitonin 0.12 NG/ML (0.19-0.49) L 07/25/17 08:17 Urine Color Yellow (YELLOW) 07/24/17 16:21 Urine Clarity Clear (Clear) 07/24/17 16:21 Urine pH 6.0 (5.0-8.0) 07/24/17 16:21 Ur Specific Crandall 1.009 (1.003-1.030) 07/24/17 16:21 Urine Protein Negative mg/dL (NEGATIVE) 07/24/17 16:21 Urine Glucose (UA) 1+ mg/dL (Normal) 07/24/17 16:21 Urine Ketones Negative mg/dL (NEGATIVE) 07/24/17 16:21 Urine Blood Negative (NEGATIVE) 07/24/17 16:21 Urine Nitrate Negative (NEGATIVE) 07/24/17 16:21 Urine Bilirubin Negative (NEGATIVE) 07/24/17 16:21 Urine Urobilinogen Normal mg/dL (0.2-1.0) 07/24/17 16:21 Ur Leukocyte Esterase Neg Laila/uL (Negative) 07/24/17 16:21 Urine WBC (Auto) 2 /hpf (0-5) 07/24/17 16:21 Urine RBC (Auto) 1 /hpf (0-3) 07/24/17 16:21 Ur Squamous Epith Cells 3 /hpf (0-5) 07/24/17 16:21 Urine Bacteria Rare (<OCC) 07/24/17 16:21 Fluid Source Pleural/thoracentesi 07/25/17 13:43 Fluid Appearance Sl cloudy (CLEAR) 07/25/17 13:43 Fluid WBC 1844.0 /mm3 (0.0-300.0) H 07/25/17 13:43 Fluid RBC 1168.0 /mm3 (0.0-0.0) H 07/25/17 13:43 Fluid Tot Cell Count 100 (0-0) H 07/25/17 13:43 Fluid Neutrophils 9.0 % (0-0) H 07/25/17 13:43 Fluid Lymphocytes 83.0 % (0-0) H 07/25/17 13:43 Fld Monocyte/Macrophag 1 % (0-0) H 07/25/17 13:43 Fluid Comment 07/25/17 13:43 Pleural Total Protein 5.6 g/dL 07/25/17 15:40 Pleural LDH 536 U/L 07/25/17 15:40 Pleural Glucose 145 mg/dL 07/25/17 15:40 Pleural Amylase 32 U/L 07/25/17 13:43 Pleural Lipase 24.0 U/L (<10) H 07/25/17 15:40 Pleural Cholesterol 88 mg/dL 07/25/17 15:40 Pleural Triglycerides 49 mg/dL 07/25/17 15:40 Cnqv-1-[id number] Ab <9 REMI (<=20) 07/25/17 11:27 Beta-2 GPI IgG Ab <9 SGU (<=20) 07/25/17 11:27 Beta-2 GPI IgM Ab <9 SMU (<=20) 07/25/17 11:27 Anti-Cardiolipin IgG Ab <14 GPL (<=14) 07/25/17 11:27 Anti-Cardiolipin IgA Ab <11 APL (<=11) 07/25/17 11:27 Anti-Cardiolipin IgM Ab <12 MPL (<=12) 07/25/17 11:27 C. difficile Ag & Toxin Negative (NEGATIVE) 07/25/17 09:39 Influenza Typ A,B (EIA) Negative for flu a/b (NEGATIVE) 07/25/17 15:41 Ur L.pneumophila Ag Negative (NEGATIVE) 07/25/17 Unknown - Hospital Course Hospital Course: Discharge Summary for Dr. Arthur 56 yo F with a PMHx of asthma, DM, HTN, CVA, and total bilateral vision loss, presents to the ED for worsening shortness of breath that began 4 days ago. Alleviating factors include laying flat and exacerbating factors include sitting up or standing. Associated symptoms include non-productive cough, wheezing, fatigue, subjective fever, headache and loss of appetite. The cough has disrupted her sleep. She also endorses mid-sternal/right sided chest pain rated 7/10, epigastric pain rated 7/10, and 5 episodes of non-bloody diarrhea which all began yesterday. She denies sore throat, recent travel, sick contacts , dysuria, chills, weight changes. She says her shortness of breath feels like asthma. She normally uses her inhaler 1-2x a day however the inhaler hasn't resolved her dsypnea this time. Patient had these images and tests done during stay: Patient admitted for shortness of breath. IR drainage: 300cc yellow, clear fluid 07/25 CXR: no evidence of pneumothorax post left thoracentesis Thoracentesis results: WBC 1844 RBC 1168 Total cell count 100 Neutrophils 9.0 lymphocytes 83.0 monocyte/macrophage 1 Pleural total protein 5.6 Pleural LDH: 536 Pleural Glucose: 145 Pleural amylase 32 Pleural lipase 24.0 pleural pH, serum LDH and total protein ordered, no results 07/[address]: no PE, large left pleural effusion (partially loculated). atelectasis primarily in left lower lobe 07/24 chest XR: small left pleural effusion. underlying atelectasis/pneumonia 07/24 EKbpm NSR Left axis deviation 07/25: patient states she is feeling better, patient had IR drainage prior to visiting patient 07/26: No complaint, CBCs monitored, Vitals monitored 07/27: no events over the weekend, CBCs monitored , Vitals monitored 07/28: no events over the weekend, CBCs monitored, Vitals monitored 07/29: Patient's actively pacing around nursing station waiting for a note to be written for Doctor's note about 's stay in the hospital excusing him from work. I explained multiple times in multiple ways in greenlandic about how the dates ranged specifically for the time the (patient) was in the hospital), patient's tried to have resident (Caitlin Amor PGY1) write for extension of time stating to "I guess you'll have to take care of yourself at home when we go home since I have to work tomorrow") Patient is walking well. Patient states the ambulation is similar to when she is at home. Patient states she is doing well and would like to go home. Patient admits to coughing, but is normal for her. Patient states she does not feel shortness of breath. Patient denies foot pain, nausea, dizziness, headaches. Patient is discharged with medrol dose pack with instructions, prescription for follow up XRAY in 6 weeks, augmentin for 5 days. Patient is instructed to follow up at clinic in one week - Date & Time of H&P Date of H&P: 07/29/17 Time of H&P: 14:29 Discharge Exam - Head Exam Head Exam: NORMOCEPHALIC - Eye Exam Additional comments: patient is blind - ENT Exam ENT Exam: Mucous Membranes Moist - Neck Exam Neck exam: Full Rom - Respiratory Exam Respiratory Exam: Decreased Breath Sounds, NORMAL BREATHING PATTERN. absent: Accessory Muscle Use - Cardiovascular Exam Cardiovascular Exam: REGULAR RHYTHM, +S1, +S2. absent: Bradycardia, Tachycardia - GI/Abdominal Exam GI & Abdominal Exam: Soft, Unremarkable. absent: Tenderness - Extremities Exam Extremities exam: full ROM - Neurological Exam Neurological exam: Alert, Oriented x3 - Psychiatric Exam Psychiatric exam: Normal Affect, Normal Mood - Skin Skin Exam: Dry, Normal Color, Warm Discharge Plan - Discharge Medications Prescriptions: Albuterol Sulfate [Proventil Hfa] 6.7 gm IH Q8H PRN #1 [id number] PRN Reason: Shortness Of Breath Amoxicillin/Clavulanate [Augmentin 875 MG-125 MG] 1 tab PO BID #5 tab Methylprednisolone [Medrol Dose Pack (21 tabs)] 4 mg PO TID #21 mg - Follow Up Plan Condition: STABLE Disposition: HOME/ ROUTINE Patient education suggested?: Yes Instructions: Pleural Effusion (DC), Dyspnea (GEN), Hypertension (DC), Pneumonia (DC) Additional Instructions: Take augmentin antibiotics as directed for 5 days use Proventil as needed and take Medrol dose pack as prescribed Follow up in 1 week with primary care doctor Dr. Mabry follow up with underwriting service representative per PMD recommendations. prescription for chest x ray to follow up in 6 weeks Doctor's note written stating range of dates patient was in the hospital for the return to ED if difficulty breathing, chest pain or shortness of breath Referrals: Law James MD [Staff Provider] - <Magno Arthur - Last Filed: 07/30/17 07:55> Provider - Provider Date of Admission: 07/24/17 20:26 Attending physician: Gene Olivares MD Hospital Course - Lab Results Lab Results: Micro Results 07/24/17 18:30 Blood-Venous Blood Culture - Final NO GROWTH AFTER 5 DAYS 07/24/17 18:30 Blood-Venous Gram Stain - Final TEST NOT PERFORMED 07/24/17 17:54 Blood-Venous Blood Culture - Final NO GROWTH AFTER 5 DAYS 07/24/17 17:54 Blood-Venous Gram Stain - Final TEST NOT PERFORMED 07/26/17 17:23 Stool Stool Culture - Final NO SALMONELLA, SHIGELLA OR CAMPYLOBACTER ISOLATED. 07/26/17 17:22 Stool Ova and Parasite Concentrate Exam - Final 07/25/17 13:43 Pleural Fluid Gram Stain - Final Most Recent Lab Values WBC 10.8 K/uL (4.8-10.8) 07/29/17 07:54 RBC 4.76 Mil/uL (3.80-5.20) 07/29/17 07:54 Hgb 11.2 g/dL (11.0-16.0) 07/29/17 07:54 Hct 35.0 % (34.0-47.0) 07/29/17 07:54 MCV 73.6 fL (81.0-99.0) L 07/29/17 07:54 MCH 23.6 pg (27.0-31.0) L 07/29/17 07:54 MCHC 32.1 g/dL (33.0-37.0) L 07/29/17 07:54 RDW 18.7 % (11.5-14.5) H 07/29/17 07:54 Plt Count 465 K/uL (130-400) H 07/29/17 07:54 MPV 7.9 fL (7.2-11.7) 07/29/17 07:54 Neut % (Auto) 71.9 % (50.0-75.0) 07/29/17 07:54 Lymph % (Auto) 16.4 % (20.0-40.0) L 07/29/17 07:54 Lanier % (Auto) 7.1 % (0.0-10.0) 07/29/17 07:54 Eos % (Auto) 4.1 % (0.0-4.0) H 07/29/17 07:54 Baso % (Auto) 0.5 % (0.0-2.0) 07/29/17 07:54 Neut # 7.8 K/uL (1.8-7.0) H 07/29/17 07:54 Lymph # 1.8 K/uL (1.0-4.3) 07/29/17 07:54 Lanier # 0.8 K/uL (0.0-0.8) 07/29/17 07:54 Eos # 0.4 K/uL (0.0-0.7) 07/29/17 07:54 Baso # 0.1 K/uL (0.0-0.2) 07/29/17 07:54 Neutrophils % (Manual) 82 % (50-75) H 07/24/17 15:31 Band Neutrophils % 1 % (0-2) 07/24/17 15:31 Lymphocytes % (Manual) 7 % (20-40) L 07/24/17 15:31 Monocytes % (Manual) 10 % (0-10) 07/24/17 15:31 Platelet Estimate Normal (NORMAL) 07/24/17 15:31 Large Platelets Present 07/24/17 15:31 Giant Platelets Present 07/24/17 15:31 Poikilocytosis (manual Slight 07/24/17 15:31 Anisocytosis (manual) Slight 07/24/17 15:31 Ovalocytes Slight 07/24/17 15:31 D-Dimer, Quantitative 905 ng/mlDDU (0-243) H 07/24/17 15:31 Sodium 140 mmol/L (132-148) 07/29/17 07:54 Potassium 3.9 mmol/L (3.6-5.2) 07/29/17 07:54 Chloride 97 mmol/L (98-107) L 07/29/17 07:54 Carbon Dioxide 28 mmol/L (22-30) 07/29/17 07:54 Anion Gap 19 (10-20) 07/29/17 07:54 BUN 10 mg/dL (7-17) 07/29/17 07:54 Creatinine 0.6 MG/DL (0.7-1.2) L 07/29/17 07:54 Est GFR ( Amer) > 60 07/29/17 07:54 Est GFR (Non-Af Amer) > 60 07/29/17 07:54 POC Glucose (mg/dL) 144 mg/dL (65-110) H 07/29/17 12:07 Random Glucose 129 mg/dL (65-105) H 07/29/17 07:54 Hemoglobin A1c 6.9 % (4.2-6.5) H 07/25/17 01:38 Lactic Acid 1.9 mmol/L (0.7-2.1) 07/25/17 01:43 Calcium 9.9 mg/dl (8.6-10.4) 07/29/17 07:54 Phosphorus 2.6 mg/dL (2.5-4.5) 07/25/17 11:27 Magnesium 1.5 mg/dL (1.6-2.3) L 07/26/17 07:13 Iron 19 ug/dL (37-170) L 07/25/17 07:34 TIBC 370 ug/dL (250-450) 07/25/17 07:34 % Saturation 6 (20-55) L 07/25/17 11:27 Ferritin 85.8 ng/mL 07/25/17 11:27 Total Bilirubin 0.4 mg/dL (0.2-1.3) 07/29/17 07:54 AST 20 U/L (14-36) 07/29/17 07:54 ALT 31 U/L (9-52) 07/29/17 07:54 Alkaline Phosphatase 95 U/L (38-126) 07/29/17 07:54 Troponin I < 0.0120 ng/mL (0.00-0.120) 07/25/17 11:27 NT-Pro-B Natriuret Pep 260 pg/mL (0-900) 07/24/17 15:31 Total Protein 7.3 g/dL (6.3-8.3) 07/29/17 07:54 Albumin 3.7 g/dL (3.5-5.0) 07/29/17 07:54 Globulin 3.6 gm/dL (2.2-3.9) 07/29/17 07:54 Albumin/Globulin Ratio 1.0 (1.0-2.1) 07/29/17 07:54 Lipase 51 U/L (23-300) 07/24/17 15:31 Procalcitonin 0.12 NG/ML (0.19-0.49) L 07/25/17 08:17 Urine Color Yellow (YELLOW) 07/24/17 16:21 Urine Clarity Clear (Clear) 07/24/17 16:21 Urine pH 6.0 (5.0-8.0) 07/24/17 16:21 Ur Specific Crandall 1.009 (1.003-1.030) 07/24/17 16:21 Urine Protein Negative mg/dL (NEGATIVE) 07/24/17 16:21 Urine Glucose (UA) 1+ mg/dL (Normal) 07/24/17 16:21 Urine Ketones Negative mg/dL (NEGATIVE) 07/24/17 16:21 Urine Blood Negative (NEGATIVE) 07/24/17 16:21 Urine Nitrate Negative (NEGATIVE) 07/24/17 16:21 Urine Bilirubin Negative (NEGATIVE) 07/24/17 16:21 Urine Urobilinogen Normal mg/dL (0.2-1.0) 07/24/17 16:21 Ur Leukocyte Esterase Neg Laila/uL (Negative) 07/24/17 16:21 Urine WBC (Auto) 2 /hpf (0-5) 07/24/17 16:21 Urine RBC (Auto) 1 /hpf (0-3) 07/24/17 16:21 Ur Squamous Epith Cells 3 /hpf (0-5) 07/24/17 16:21 Urine Bacteria Rare (<OCC) 07/24/17 16:21 Fluid Source Pleural/thoracentesi 07/25/17 13:43 Fluid Appearance Sl cloudy (CLEAR) 07/25/17 13:43 Fluid WBC 1844.0 /mm3 (0.0-300.0) H 07/25/17 13:43 Fluid RBC 1168.0 /mm3 (0.0-0.0) H 07/25/17 13:43 Fluid Tot Cell Count 100 (0-0) H 07/25/17 13:43 Fluid Neutrophils 9.0 % (0-0) H 07/25/17 13:43 Fluid Lymphocytes 83.0 % (0-0) H 07/25/17 13:43 Fld Monocyte/Macrophag 1 % (0-0) H 07/25/17 13:43 Fluid Comment 07/25/17 13:43 Pleural Total Protein 5.6 g/dL 07/25/17 15:40 Pleural LDH 536 U/L 07/25/17 15:40 Pleural Glucose 145 mg/dL 07/25/17 15:40 Pleural Amylase 32 U/L 07/25/17 13:43 Pleural Lipase 24.0 U/L (<10) H 07/25/17 15:40 Pleural Cholesterol 88 mg/dL 07/25/17 15:40 Pleural Triglycerides 49 mg/dL 07/25/17 15:40 [id number]-8-[id number] Ab <9 REMI (<=20) 07/25/17 11:27 Beta-2 GPI IgG Ab <9 SGU (<=20) 07/25/17 11:27 Beta-2 GPI IgM Ab <9 SMU (<=20) 07/25/17 11:27 Anti-Cardiolipin IgG Ab <14 GPL (<=14) 07/25/17 11:27 Anti-Cardiolipin IgA Ab <11 APL (<=11) 07/25/17 11:27 Anti-Cardiolipin IgM Ab <12 MPL (<=12) 07/25/17 11:27 C. difficile Ag & Toxin Negative (NEGATIVE) 07/25/17 09:39 Influenza Typ A,B (EIA) Negative for flu a/b (NEGATIVE) 07/25/17 15:41 Ur L.pneumophila Ag Negative (NEGATIVE) 07/25/17 Unknown Attending/Attestation - Attestation I have personally seen and examined this patient.: Yes I have fully participated in the care of the patient.: Yes I have reviewed all pertinent clinical information, including history, physical exam and plan: Yes Notes (Text): Medical Attending: Patient was seen and examined by me. Agree with the above note by the resident The patient had previously underwent a thoracentesis and removal of 300 cc of fluid. The culture of that fluid was negative nevertheless she has been on IV abx from previous week. Her blood cultures have been negative for 5 days as well. She does not have a temperature or a WBC count elevation The patient will need to continue PO abx for several more days as well as a medrol dose pack to go with as well thank you Magno Arthur
[2017-07-30 23:28] LABS: PHOSPHATIDYLSERINE AB IGA <20 U/mL (<20); PHOSPHATIDYLSERINE AB IGM <25 U/mL (<25)
== END 2017-07-29 17:21 | disposition home or self-care (01) | DRG 541 ==
LOC: C.ER 14:26 → C.9E 20:26 → C.5S 23:01
PROVIDERS: ADMIT Family Medicine; ATTEND Family Medicine
PROC: 0W9B3ZX Drainage of Left Pleural Cavity, Percutaneous Approach, Diagnostic (ICD-10-PCS; principal; 2017-07-25)
PROC: BB4BZZZ Ultrasonography of Pleura (ICD-10-PCS; 2017-07-25)
DX: J90 Pleural effusion, not elsewhere classified (principal); J18.9 Pneumonia, unspecified organism; J44.0 Chronic obstructive pulmonary disease with (acute) lower respiratory infection; E83.42 Hypomagnesemia; J98.11 Atelectasis; I10 Essential (primary) hypertension; H54.8 Legal blindness, as defined in USA; E11.9 Type 2 diabetes mellitus without complications; H54.3 Unqualified visual loss, both eyes; J45.40 Moderate persistent asthma, uncomplicated; R07.89 Other chest pain; Z79.84 Long term (current) use of oral hypoglycemic drugs; Z86.73 Personal history of transient ischemic attack (TIA), and cerebral infarction without residual deficits; Z90.49 Acquired absence of other specified parts of digestive tract

== ENCOUNTER 2017-09-22 16:22 | Emergency (ER) | payer MEDICAID ==
[2017-09-22 16:23] VITALS: BMI 36.9
[2017-09-22] MEDS ORDERED: Sodium Chloride 0.9% 500 ML IV ONE ×2 (18:59→19:48)
[2017-09-22 19:10] LABS: BASO # 0.1 K/uL (0.0-0.2); BASO % 1.1 % (0.0-2.0); EOS # 0.5 K/uL (0.0-0.7); EOS % 4.8 % (0.0-4.0); HEMATOCRIT 35.9 % (34.0-47.0); LYMPH # 2.6 K/uL (1.0-4.3); LYMPH % 23.9 % (20.0-40.0); MEAN CELL VOLUME 72.7 fL (81.0-99.0); MEAN CORPUSCULAR HEMOGLOBIN 23.5 pg (27.0-31.0); MEAN CORPUSCULAR HGB CONC 32.3 g/dL (33.0-37.0); MEAN PLATELET VOLUME 7.8 fL (7.2-11.7); MONO % 9.2 % (0.0-10.0); NRBC % 0.1 % (0.0-2.0); RED CELL DISTRIBUTION WIDTH 18.8 % (11.5-14.5); WHITE BLOOD COUNT 10.8 K/uL (4.8-10.8)
[2017-09-22 19:17] LABS: RBC URINE 1 /hpf (0-3); URINE BACTERIA RARE (<OCC); URINE BILIRUBIN NEGATIVE (NEGATIVE); URINE BLOOD NEGATIVE (NEGATIVE); URINE COLOR Yellow (YELLOW); URINE GLUCOSE (UA) NORMAL (Normal); URINE KETONE NEGATIVE (NEGATIVE); URINE LEUKOCYTE ESTERASE TRACE Leu/uL (Negative); URINE PROTEIN NEGATIVE (NEGATIVE); URINE UROBILINOGEN NORMAL mg/dL (0.2-1.0); WBC URINE 3 /hpf (0-5)
[2017-09-22 19:24] LABS: ALKALINE PHOSPHATASE 110 U/L (38-126); ALT/SGPT 22 U/L (9-52); AST/SGOT 17 U/L (14-36); BILIRUBIN,TOTAL 0.3 mg/dL (0.2-1.3); BLOOD UREA NITROGEN 9 mg/dL (7-17); CALCIUM 9.3 mg/dl (8.6-10.4); CARBON DIOXIDE 27 mmol/L (22-30); CHLORIDE 100 mmol/L (98-107); GFR AFRICAN-AMERICAN > 60; GLUCOSE,RANDOM 115 mg/dL (65-105); POTASSIUM 3.7 mmol/L (3.6-5.2); SODIUM 136 mmol/L (132-148); TOTAL PROTEIN 8.9 g/dL (6.3-8.3)
[2017-09-22 19:38] LABS: ALB/GLOB RATIO 0.8 (1.0-2.1)
--- NOTE | 2017-09-22 20:21 | C.PDOC ---
Time Seen by Provider: 09/22/17 18:15 Chief Complaint (Nursing): Abdominal Pain History Per: Patient, Family Onset/Duration Of Symptoms: Days (8), Intermittent Episodes Current Symptoms Are (Timing): Still Present Severity: Moderate Location Of Pain/Discomfort: RUQ, Epigastric Quality Of Discomfort: Unable To Describe, "Pain" Associated Symptoms: Nausea Exacerbating Factors: Food Additional History Per: Prior Records Past Medical History Reviewed: Historical Data, Nursing Documentation, Vital Signs Vital Signs: Last Vital Signs Temp 99.3 F 09/22/17 16:39 Pulse 70 09/22/17 16:39 Resp 16 09/22/17 16:39 BP 144/92 H 09/22/17 16:39 Pulse Ox 99 09/22/17 16:39 - Medical History PMH: Asthma, Diabetes, HTN Surgical History: Cholecystectomy - [facility] Procedures DRAINAGE OF LEFT PLEURAL CAVITY, PERC APPROACH, DIAGN (07/24/17) ESOPHAGOGASTRODUODENOSCOPY [EGD] W/CLOSED BIOPSY (03/13/13) ULTRASONOGRAPHY OF PLEURA (07/24/17) Family History: States: Unknown Family Hx - Social History Hx Tobacco Use: No Hx Alcohol Use: No Hx Substance Use: No - Immunization History Hx Tetanus Toxoid Vaccination: No Hx Influenza Vaccination: No Hx Pneumococcal Vaccination: No Review Of Systems Except As Marked, All Systems Reviewed And Found Negative. Constitutional: Negative for: Fever, Weakness Cardiovascular: Negative for: Chest Pain Respiratory: Negative for: Cough, Shortness of Breath Gastrointestinal: Negative for: Vomiting, Diarrhea, Melena, Hematochezia, Hematemesis Genitourinary: Negative for: Dysuria Musculoskeletal: Negative for: Neck Pain, Back Pain Skin: Negative for: Rash Neurological: Negative for: Weakness, Numbness, Seizures, Altered Mental Status Physical Exam - Physical Exam Appears: Non-toxic, No Acute Distress Skin: Normal Color, Warm, Dry, No Rash Head: Atraumatic, Normacephalic Eye(s): bilateral: Normal Inspection, PERRL, EOMI Neck: Normal ROM, Supple Cardiovascular: Rhythm Regular Respiratory: Normal Breath Sounds, No Accessory Muscle Use Gastrointestinal/Abdominal: Soft, No Tenderness Back: No CVA Tenderness Extremity: Normal ROM Neurological/Psych: Oriented x3, Normal Motor, Normal Sensation ED Course And Treatment - Laboratory Results Result Diagrams: 09/22/17 18:59 09/22/17 19:09 Lab Interpretation: No Acute Changes O2 Sat by Pulse Oximetry: 99 Pulse Ox Interpretation: Normal - Radiology CXR: Interpreted by Me, Viewed By Me CXR Interpretation: Yes: No Acute Disease Progress - Interventions Interventions:: Observation, Intravenous fluid - Medications Administered Intravenous: Antiemetic, H-2 oracio - Data Reviewed Data Reviewed: Lab, Diagnostic imaging, Old records - Patient Status Patient status: Mostly improved - Continuity of Care Discussed patient case with:: Patient, Family-HIPPA compliant, ED Nurse - Patient Plan Patient Plan: Discharge, F/U with PCP Disposition Counseled Patient/Family Regarding: Studies Performed, Diagnosis, Need For Followup, Rx Given - Disposition Referrals: Ray Mabry MD [Staff Provider] - David Pettit [Staff Provider] - Disposition: HOME/ ROUTINE Disposition Time: 20:21 Condition: IMPROVED Additional Instructions: Stop taking the Naproxen. Continue your Omeprazole. Follow up with your doctor this week. Follow up with a Video Game Designer for further evaluation and treatment. Return to the ER if you develop fever, vomiting, bloody or black stools, worsening of symptoms or if you have any other concerns. Prescriptions: Sucralfate [Carafate] 1 gm PO QID #120 tablet Instructions: Abdominal Pain (ED) Forms: [employer] (Occitan) Print Language: TAJIK - Clinical Impression Clinical Impression: Upper abdominal pain
[2017-09-22 20:38] VITALS: BP 158/91; PULSE 60; RESP 20; TEMP 97.9; O2SAT 95
--- NOTE | 2017-09-23 08:43 | RAD ---
HISTORY: RUQ pain COMPARISON: Frontal radiograph 07/17/2017. TECHNIQUE: Chest PA and lateral FINDINGS: LUNGS: Chronic limited left lateral pleural effusion versus pleural thickening. No residual infiltrate bilaterally. Reticular markings remain increased at periphery suggestive of probable chronic interstitial pulmonary disease. No right pleural effusion or pneumothorax bilaterally. CARDIOVASCULAR: Stable prominent cardiac silhouette appreciated. No pulmonary vascular derangement appreciated. OSSEOUS STRUCTURES: No significant abnormalities. VISUALIZED UPPER ABDOMEN: Normal. OTHER FINDINGS: None. IMPRESSION: Chronic interstitial disease is felt to present with chronic pleural thickening or pleural effusion noted at the mid to inferior left pleural laterally. Stable prominent cardiac silhouette. No acute infiltrate.
== END 2017-09-22 20:38 | disposition home or self-care (01) ==
LOC: C.ER 16:22
DX: R10.11 Right upper quadrant pain (principal)
CPT/HCPCS: 71020; 80053; 81001; 83690; 85025; 87086; 87181; 96374; 96375; 99284; J2765; J7040

== ENCOUNTER 2018-12-05 13:33 | Emergency (ER) | payer MEDICAID ==
[2018-12-05 13:43] VITALS: BMI 35.6
[2018-12-05] MEDS ORDERED: Albuterol-Ipratrop 3 mg / 0.5 (3 ml) UD INH STA ×3 (14:09→14:11)
--- NOTE | 2018-12-05 14:14 | C.PDOC ---
History Of Present Illness 58 y/o female pt who is blind with hx of asthma, DM and HTN presents to the ER c/o congestion for x5 days. Associated sx includes non-productive cough, frontal headache and chest pain which both exacerbates when coughing and breathing. Pt has no other complaints and denies fever, vomiting, diarrhea and body aches. Time Seen by Provider: 12/05/18 13:54 Chief Complaint (Nursing): Shortness Of Breath History Per: Patient History/Exam Limitations: no limitations Onset/Duration Of Symptoms: Days (x5) Current Symptoms Are (Timing): Still Present Past Medical History Reviewed: Historical Data, Nursing Documentation, Vital Signs Vital Signs: Last Vital Signs Temp 98.4 F 12/05/18 13:43 Pulse 77 12/05/18 13:43 Resp 24 12/05/18 13:43 BP 163/105 H 12/05/18 13:43 Pulse Ox 96 12/05/18 13:43 - Medical History PMH: Asthma, Diabetes, HTN Surgical History: Cholecystectomy - [facility] Procedures DRAINAGE OF LEFT PLEURAL CAVITY, PERC APPROACH, DIAGN (07/24/17) ESOPHAGOGASTRODUODENOSCOPY [EGD] W/CLOSED BIOPSY (03/13/13) ULTRASONOGRAPHY OF PLEURA (07/24/17) Family History: States: Unknown Family Hx - Social History Hx Tobacco Use: No Hx Alcohol Use: No Hx Substance Use: No - Immunization History Hx Tetanus Toxoid Vaccination: No Hx Influenza Vaccination: No Hx Pneumococcal Vaccination: No Review Of Systems Except As Marked, All Systems Reviewed And Found Negative. Constitutional: Positive for: Other (congestion ). Negative for: Fever Cardiovascular: Positive for: Chest Pain Respiratory: Positive for: Cough (non-productive ) Gastrointestinal: Negative for: Vomiting, Diarrhea Musculoskeletal: Negative for: Other (body aches ) Neurological: Positive for: Headache (frontal ) Physical Exam - Physical Exam Appears: Non-toxic, No Acute Distress Skin: Warm, Dry, No Rash Head: Normacephalic Eye(s): bilateral: Normal Inspection Oral Mucosa: Moist Throat: Normal, No Erythema, No Exudate, Other (uvula midline ) Chest: Symmetrical, No Deformity Cardiovascular: Rhythm Regular Respiratory: No Decreased Breath Sounds, No Rales, No Rhonchi, No Stridor, Wheezing (mild expiratory ) Gastrointestinal/Abdominal: Soft, No Tenderness Extremity: Normal ROM (x4) Neurological/Psych: Oriented x3, Normal Speech ED Course And Treatment - Laboratory Results Result Diagrams: 12/05/18 14:32 12/05/18 14:32 O2 Sat by Pulse Oximetry: 96 (RA) Pulse Ox Interpretation: Normal - Other Rad chest X-Ray: Read By Radiologist Interpretation: Accession No. : [id number]. Patient Name / ID : KEV FOWLER / [id number]. Exam Date : 12/05/2018 14:18:09 ( Approved ). Study Comment : Sex / Age : F / [id number]. Creator : Dina El MD. Dictator : Dina El MD. Regulatory Auditor : Manager [employer] Database : Dina El MD. Approver2 : Report Date : 12/05/2018 14:32:40. My Comment : . Date of service: 12/05/2018. PROCEDURE: CHEST RADIOGRAPH, 1 VIEW. HISTORY: SOB. COMPARISON: 09/22/2017. FINDINGS: LUNGS: There is mild pulmonary venous congestion. PLEURA: Soft suspect small right pleural effusion. No pneumothorax. CARDIOVASCULAR: Mild cardiomegaly. No aortic a therosclerotic calcifications present. OSSEOUS STRUCTURES: Within normal limits for the patient's age. VISUALIZED UPPER ABDOMEN: Normal. OTHER FINDINGS: None. IMPRESSION: Suspect small right pleural effusion. Mild cardiomegaly and pulmonary venous congestion. Medical Decision Making Medical Decision Making: Impression: asthma exacerbation URI plans: -- chem labs -- blood work -- EKG -- CXR -- albuterol -- solu-medrol -- tylenol Reassess: On reassessment, patient is resting comfortably with no wheezing, chest pain, or retractions. Oxygen saturation and breath sounds have improved. Patient is alert and oriented x 3. Patient's labs and X-ray results were discussed with patient. Patient was advised to follow up with physician/clinic in 1-2 days and return to ED if symptoms worsen or persist. Disposition - Disposition Referrals: [facility] [place] [facility] [Outside] [facility] [place] [Outside] Disposition: HOME/ ROUTINE Disposition Time: 17:00 Condition: IMPROVED Prescriptions: Albuterol Sulfate [Proventil Hfa] 6.7 gm IH Q4 #1 hfa.aer.ad predniSONE [Prednisone] 40 mg PO DAILY 4 Days #8 tab Instructions: Asthma in Adults, Viral Upper Respiratory Infection, Adult (DC) Forms: [employer] (Spanish) - Clinical Impression Clinical Impression: Asthma exacerbation - Scribe Statement The provider has reviewed the documentation as recorded by the Scribe Sonia Rico Provider Attestation: All medical record entries made by the Scribe were at my direction and personally dictated by me. I have reviewed the chart and agree that the record accurately reflects my personal performance of the history, physical exam, me dical decision making, and the department course for this patient. I have also personally directed, reviewed, and agree with the discharge instructions and disposition.
[2018-12-05] MEDS ORDERED: Albuterol-Ipratrop 3 mg / 0.5 (3 ml) UD ONE (14:19)
--- NOTE | 2018-12-05 14:36 | RAD ---
Date of service: 12/05/2018 PROCEDURE: CHEST RADIOGRAPH, 1 VIEW HISTORY: SOB COMPARISON: 09/22/2017. FINDINGS: LUNGS: There is mild pulmonary venous congestion. PLEURA: Soft suspect small right pleural effusion. No pneumothorax. CARDIOVASCULAR: Mild cardiomegaly. No aortic atherosclerotic calcifications present. OSSEOUS STRUCTURES: Within normal limits for the patient's age. VISUALIZED UPPER ABDOMEN: Normal. OTHER FINDINGS: None. IMPRESSION: Suspect small right pleural effusion. Mild cardiomegaly and pulmonary venous congestion.
[2018-12-05 14:38] LABS: BASO # 0.1 K/uL (0.0-0.2); BASO % 0.8 % (0.0-2.0); EOS # 1.2 K/uL (0.0-0.7); EOS % 8.5 % (0.0-4.0); HEMOGLOBIN 10.1 g/dL (11.0-16.0); LYMPH # 2.5 K/uL (1.0-4.3); LYMPH % 17.2 % (20.0-40.0); MEAN CORPUSCULAR HEMOGLOBIN 21.7 pg (27.0-31.0); MEAN CORPUSCULAR HGB CONC 30.8 g/dL (33.0-37.0); MEAN PLATELET VOLUME 7.7 fL (7.2-11.7); MONO # 1.1 K/uL (0.0-0.8); MONO % 7.4 % (0.0-10.0); NEUT # 9.5 K/uL (1.8-7.0); NEUT % 66.1 % (50.0-75.0); RBC 4.66 Mil/uL (3.80-5.20); WHITE BLOOD COUNT 14.4 K/uL (4.8-10.8)
[2018-12-05 14:40] LABS: MEAN CELL VOLUME 70.4 fL (81.0-99.0)
[2018-12-05 15:36] LABS: ALB/GLOB RATIO 1.1 (1.0-2.1); ALBUMIN 3.8 g/dL (3.5-5.0); ALT/SGPT 15 U/L (9-52); AST/SGOT 16 U/L (14-36); BLOOD UREA NITROGEN 10 mg/dL (7-17); CALCIUM 9.6 mg/dl (8.6-10.4); GFR NON-AFRICAN AMERICAN > 60
[2018-12-05 15:48] LABS: B-TYPE NATRIURETIC PEPTIDE 165 pg/mL (0-900)
[2018-12-05 17:01] VITALS: BP 135/79; PULSE 97; RESP 18; TEMP 97.6
[2018-12-06 15:57] VITALS: O2SAT 96
== END 2018-12-05 17:01 | disposition home or self-care (01) ==
LOC: C.ER 13:33
DX: J45.901 Unspecified asthma with (acute) exacerbation (principal); I10 Essential (primary) hypertension; E11.9 Type 2 diabetes mellitus without complications
CPT/HCPCS: 71045; 80053; 83880; 84484; 85025; 96374; 99284; J2930

== ENCOUNTER 2018-12-19 17:20 | Emergency (ER) | payer MEDICAID ==
[2018-12-19 17:21] VITALS: BMI 35.6
[2018-12-19] MEDS ORDERED: Sodium Chloride 0.9% 1,000 ML IV ONE (18:14)
[2018-12-19] MEDS ORDERED: Sodium Chloride 0.9% 1,000 ML ONE (18:30)
--- NOTE | 2018-12-19 18:36 | C.PDOC ---
History Of Present Illness 58 year old female presents to ED with complaint of belly cramps and diarrhea for the past 3 days. She states she has not eaten anything high risk. Patient is blind and states that her son visits her regularly. Patient states she took two Maalox yesterday and took one today. She denies eating anything today and has only had fluids. Patient denies vomiting and diarrhea. Time Seen by Provider: 12/19/18 18:01 Chief Complaint (Nursing): Abdominal Pain History Per: Patient History/Exam Limitations: no limitations Onset/Duration Of Symptoms: Days (3) Current Symptoms Are (Timing): Still Present Location Of Pain/Discomfort: Diffuse Quality Of Discomfort: Cramping Associated Symptoms: Diarrhea. denies: Fever, Vomiting Past Medical History Reviewed: Historical Data, Nursing Documentation, Vital Signs Vital Signs: Last Vital Signs Temp 98.3 F 12/19/18 17:25 Pulse 66 12/19/18 17:25 Resp 18 12/19/18 17:25 BP 124/81 12/19/18 17:25 Pulse Ox 95 12/19/18 17:25 - Medical History PMH: Asthma, Diabetes, HTN Surgical History: Cholecystectomy - [facility] Procedures DRAINAGE OF LEFT PLEURAL CAVITY, PERC APPROACH, DIAGN (07/24/17) ESOPHAGOGASTRODUODENOSCOPY [EGD] W/CLOSED BIOPSY (03/13/13) ULTRASONOGRAPHY OF PLEURA (07/24/17) Family History: States: Unknown Family Hx - Social History Hx Tobacco Use: No Hx Alcohol Use: No Hx Substance Use: No - Immunization History Hx Tetanus Toxoid Vaccination: No Hx Influenza Vaccination: No Hx Pneumococcal Vaccination: Yes Review Of Systems Constitutional: Negative for: Fever, Chills, Weakness Eyes: Positive for: Other (blind) Respiratory: Negative for: Cough, Shortness of Breath Gastrointestinal: Positive for: Abdominal Pain, Diarrhea. Negative for: Nausea, Vomiting Musculoskeletal: Negative for: Back Pain Neurological: Negative for: Weakness, Numbness, Dizziness Physical Exam - Physical Exam Appears: Well, Non-toxic, No Acute Distress, Other (Blind) Skin: Normal Color, Warm, Dry Head: Atraumatic, Normacephalic Neck: Normal ROM, Supple Chest: Symmetrical, No Deformity Gastrointestinal/Abdominal: Tenderness (mild), Other (obese belly) Extremity: Capillary Refill (<2 seconds) Extremity: Bilateral: Atraumatic, Normal Color And Temperature Neurological/Psych: Oriented x3, Normal Speech, Normal Cognition ED Course And Treatment - Laboratory Results Result Diagrams: 12/19/18 18:55 12/19/18 18:55 Lab Interpretation: Normal O2 Sat by Pulse Oximetry: 95 (RA) Pulse Ox Interpretation: Normal - Radiology CXR Interpretation: Yes: Other (chronic small R pleural effusion) - Other Rad abd x 2 X-Ray: Interpreted by Me (scant stool c/w diarrhea.) Progress Note: Labs ordered with UA for patient. Obstructive series ordered for patient. Patient given Bentyl PO, IV fluids, and Toradol IVP. Reevaluation Time: 19:38 Reassessment Condition: Improved Medical Decision Making Medical Decision Making: viral syndrome mild diarrhea normal labs though blind pt's son visits daily to help with ADL's and pt safe for dc home. Disposition Doctor Will See Patient In The: Office Counseled Patient/Family Regarding: Studies Performed, Diagnosis - Disposition Disposition: HOME/ ROUTINE Disposition Time: 19:40 Condition: GOOD Forms: [employer] (Maldivian) - Clinical Impression Clinical Impression: Viral syndrome, Diarrhea - Scribe Statement The provider has reviewed the documentation as recorded by the Scribe (Fawn Butcher) All medical record entries made by the Scribe were at my direction and personally dictated by me. I have reviewed the chart and agree that the record accurately reflects my personal performance of the history, physical exam, medical decision making, and the department course for this patient. I have also personally directed, reviewed, and agree with the discharge instructions and disposition.
[2018-12-19 18:59] LABS: BASO # 0.1 K/uL (0.0-0.2); BASO % 1.1 % (0.0-2.0); EOS # 0.6 K/uL (0.0-0.7); EOS % 5.4 % (0.0-4.0); HEMOGLOBIN 10.1 g/dL (11.0-16.0); LYMPH # 1.9 K/uL (1.0-4.3); LYMPH % 18.2 % (20.0-40.0); MEAN CELL VOLUME 70.2 fL (81.0-99.0); MEAN CORPUSCULAR HEMOGLOBIN 21.4 pg (27.0-31.0); MEAN CORPUSCULAR HGB CONC 30.4 g/dL (33.0-37.0); MEAN PLATELET VOLUME 7.8 fL (7.2-11.7); MONO # 0.9 K/uL (0.0-0.8); NEUT # 7.2 K/uL (1.8-7.0); NEUT % 67.3 % (50.0-75.0); NRBC % 0.1 % (0.0-2.0); RBC 4.71 Mil/uL (3.80-5.20); RED CELL DISTRIBUTION WIDTH 18.8 % (11.5-14.5); WHITE BLOOD COUNT 10.7 K/uL (4.8-10.8)
[2018-12-19 19:32] LABS: ALB/GLOB RATIO 1.1 (1.0-2.1); ALBUMIN 3.7 g/dL (3.5-5.0); ALT/SGPT 19 U/L (9-52); AST/SGOT 30 U/L (14-36); BLOOD UREA NITROGEN 6 mg/dL (7-17); CALCIUM 9.3 mg/dl (8.6-10.4); GFR NON-AFRICAN AMERICAN > 60; LIPASE 88 U/L (23-300)
[2018-12-19 19:32] LABS: SQUAMOUS EPITHIAL 1 /hpf (0-5); URINE BACTERIA RARE (<OCC); URINE BILIRUBIN NEGATIVE (NEGATIVE); URINE BLOOD NEGATIVE (NEGATIVE); URINE CLARITY Clear (Clear); URINE COLOR Straw (YELLOW); URINE GLUCOSE (UA) NORMAL (Normal); URINE LEUKOCYTE ESTERASE NEG Leu/uL (Negative); URINE PROTEIN NEGATIVE (NEGATIVE); URINE UROBILINOGEN NORMAL mg/dL (0.2-1.0)
[2018-12-19 19:57] VITALS: BP 117/74; PULSE 63; RESP 19; TEMP 97.9; O2SAT 100
--- NOTE | 2018-12-20 16:01 | RAD ---
Date of service: 12/19/2018 PROCEDURE: Radiographs of the chest and abdomen (obstructive series) HISTORY: abd pain COMPARISON: No prior. TECHNIQUE: AP radiograph of the chest, with upright and supine radiographs of the abdomen. FINDINGS: CHEST: Lungs: Clear. Cardiovascular: Normal size heart. No pulmonary vascular congestion. No aortic atherosclerotic calcification present Pleura: Small right pleural effusion. No left pleural effusion. No pneumothorax. Other findings: None. ABDOMEN AND PELVIS: Bowel: Unremarkable bowel gas pattern. No evidence of mechanical obstruction. Free air: None. Bones: Unremarkable. Other findings: None. IMPRESSION: No evidence of bowel obstruction. Small right pleural effusion.
== END 2018-12-19 20:09 | disposition home or self-care (01) ==
LOC: C.ER 17:20
DX: B34.9 Viral infection, unspecified (principal); R19.7 Diarrhea, unspecified; I10 Essential (primary) hypertension; E11.9 Type 2 diabetes mellitus without complications
CPT/HCPCS: 74022; 80053; 81001; 83690; 85025; 96361; 96374; 99284; J1885; J7030

== ENCOUNTER 2019-03-04 09:22 | Day surgery (SDC) | payer MEDICAID ==
[2019-03-03 10:46] VITALS: BMI 33.1
[~2019-03-04 09:22] MED LIST: Lactated Ringer's 500 ML IV SCH
[2019-03-04] MEDS ORDERED: Propofol 10 mg/ml Inj (20 ML) ONE ×2 (11:19→12:18)
[2019-03-04 13:00] VITALS: TEMP 97.5; O2SAT 100
[2019-03-04 13:58] VITALS: BP 157/86; PULSE 61; RESP 20
== END 2019-03-04 13:55 | disposition home or self-care (01) ==
LOC: C.ENDO 09:22
PROVIDERS: ATTEND Internal Medicine Gastroenterology
DX: K21.0 Gastro-esophageal reflux disease with esophagitis (principal); K29.50 Unspecified chronic gastritis without bleeding; K64.1 Second degree hemorrhoids; D50.9 Iron deficiency anemia, unspecified; R10.13 Epigastric pain; E11.9 Type 2 diabetes mellitus without complications; I10 Essential (primary) hypertension; M81.0 Age-related osteoporosis without current pathological fracture; J45.909 Unspecified asthma, uncomplicated; M17.12 Unilateral primary osteoarthritis, left knee; Z86.73 Personal history of transient ischemic attack (TIA), and cerebral infarction without residual deficits; Z79.899 Other long term (current) drug therapy; Z90.49 Acquired absence of other specified parts of digestive tract; Z90.710 Acquired absence of both cervix and uterus; Z98.51 Tubal ligation status; Z87.891 Personal history of nicotine dependence; Z79.84 Long term (current) use of oral hypoglycemic drugs
CPT/HCPCS: 43239; 45378; 82948; 88305; 88312; 88313; 88342; J2001; J2704; J3010; J7120